=== PATIENT | male | born 1990 | race African-American/Black ===

== ENCOUNTER 2017-08-08 08:45 | Day surgery (SDC) | payer OTHER, MEDICAID, SELFPAY ==
[2017-08-08] VITALS (7 sets, daily range): BP systolic 121–136; BP diastolic 73–88; PULSE 63–81; RESP 15–17; TEMP 35.9–36.7; O2SAT 95–100; BMI 29.6
[2017-08-08] MEDS: LACTATED RINGERS 1,000 ML 42 ML IV (09:30)
--- NOTE | 2017-08-08 09:50 | PM.OP.1 ---
Operative Date/Time/Diagnoses - Date of procedure: 08/08/17 Time of procedure: 13:18 Pre-op diagnosis: Syndesmotic disruption right ankle sequel ICD 10 s93.431 Broken orthopedic hardware t84 Post-op diagnosis: same Procedure & Clinicians Procedure: 1. Stage revision syndesmotic fixation, with placement syndesmotic suture [place] 57446 2. removal syndesm[place] c[place] 93170 3. Removal broken hardware, separate incision cpt 39413 -[id number] This procedure was performed with a 22 modifier for a complex, revision case Same procedure as scheduled: Yes Indications: The patient is a 26-year-old male status post a right [place]uve ankle fracture dislocation on December 22, 2016. He was initially seen and treated by another physician. During the postoperative. Right about the time he started weight-bearing it was noticed that his fixation had failed his medial clear space opened up and he had broken his proximal syndesmotic screw and loosened the distal screw. He had a revision ORIF with myself on April 11, 2017 with a plan to convert the 3 syndesmotic screws to suture button device is approximately 16 weeks postoperative to provide long-term stability. Additionally the patient has requested removal of the broken 4.5 screw piece at the medial cortex. The patient returns today for the 2nd stage of his revision procedure. The risks and benefits of the procedure have been explained in detail with the patient. 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 Specific risks and benefits of surgery were discussed including but not limited to: Infection, wound dehiscence, damage to nerves and blood vessels, nonunion malunion, failure of fixation, hardware irritation, inability to return to prior level of activity, persistent pain, DVT, PE, cardiopulmonary complications associated with general anesthesia up to including . The patient expressed understanding of all these risks and has elected to proceed with surgery. Consent was signed in the office. The importance of complete tobacco and nicotine cessation was again explained to the patient and its importance in bone and wound healing. The patient has maintained nonsmoking status since the 1st revision surgery. He patient also understands that it is critical to strictly elevate the operative leg for the 1st 2 weeks after surgery to control swelling and pain. The patient was counseled that no weight will be allowed on the surgical leg for approximately 2 weeks or until the patient is instructed that it is safe to initiate weight-bearing. The patient expressed full understanding of all these issues would like to proceed with surgery. DVT prophylaxis was discussed and will be completed with 325 mg aspirin starting postoperative day 1. Surgeon: Luisa Cook Radiologic Technology Instructor: Jovanna Chen Anesthesia Type: General, Peripheral nerve block and Local Operative Notes Findings: The patient's prior fixation included a 5 hole Synthes 1/3 tubular plate (3) 4.0 cortical syndesmotic screws and (2) 3.5 screws in the fibula. Medially there was a remnant from the broken original fixation, 4.5 cortical screw. The previous lateral approach was opened up over the fibula and the hardware exposed. A separate medial incision was made to remove the broken screw remnants from the 4.5 screw. This was drilled over using the hardware removal set and removed with the extraction bolt. Attention was turned laterally and the proximal syndesmotic screw was removed and exchanged for a knotless tightrope from [employer], stainless steel. Then sequentially the 2nd and 3rd syndesmotic screws were exchanged for tight ropes. The middle syndesmotic screw was noted to be loose and broken. The distal piece of screw was enclosed in the the tibia and was not removed. Due to the broken screw the distal 3 5 screw was removed and a 3rd tight rope placed in this location. The construct was stressed under fluoroscopic imaging and noted to be stable with no evidence of instability or syndesmotic or medial widening. Closure Type: primary Specimen(s): none sent Implants & Drains: Three [employer] knotless stainless steel tightrope-suture button device Estimated Blood Loss (mL): 25 Blood products transfused: none Tourniquet time (min): 100 Procedure in detail: Procedure in detail: In the preoperative holding area, the appropriate limb and sites were marked, consent was again reviewed with the patient and all questions answered. The patient was brought to the operating room, placed on the operating table and given anesthetic. Following successful levels of anesthesia, the patient was appropriately padded, position secured to the table. An SCD was placed on the contralateral leg. All bony prominences were well padded. A well-padded thigh tourniquet was placed. The surgical leg was then prepped and draped in the usual sterile fashion. A formal time-out procedure was completed confirming the patient, site and side of surgery and administration of appropriate preoperative antibiotics. All were in agreement. The Esmarch tourniquet was used for exsanguination and the tourniquet raised on the thigh to 250 mm of mercury and stayed there for 100 min. Next C-arm was brought in for fluoroscopy and the level of the screws were provisionally marked on the leg. A good mortise image was obtained to compare with the previously captured mortise of the contralateral leg. Next at the previous lateral incision was reopened sharply through the skin careful dissection through the subcutaneous tissues down to the fibula. The previous hardware was then exposed. The superficial peroneal nerve was not exposed during this approach. Next attention was turned medially and the location of the broken 4.5 screw was located with AP and lateral fluoroscopy. Sharp dissection was taken down through the skin subcu is tenuous tissue, the saphenous vein and neurovascular bundle were exposed and carefully mobilized posteriorly. A small protruding tip of the screw was located. This was not able to be grasped. And due to the plate on the contralateral side the old hole was not able to be exposed for this screw. Therefore the broken hardware removal set and over drill was used to expose the tip of the screw further. This was done with care and cooling. The extraction bolt was then threaded onto the screw and the screw was removed in total. Attention was then returned to the lateral side of the leg. The proximal syndesmotic screw was removed and exchanged for a tight rope. The guidewire for the tight rope was placed through the hole in the plate and angled slightly less anterior than the previous screw to obtain a trajectory further across the medial cortex of the tibia. This was then overdrilled with a cannulated drill. The guidewire and drill were removed and a knotless stem was still tight rope was opened and placed. The next syndesmotic was then removed and noted to be loose and broken. The lateral screw piece and head were removed. The remaining broken piece from the tricortical syndesmotic screw was within the tibia and not sticking out or protruding into the joint syndesmosis. This was attempted to be removed by a mallet and through the screw hole however it did not move so was left in place, as it would not be symptomatic. Due to the broken screw, and continued plan for 3 tight rope devices, attention was then turned to the distal most hole of the fibular plate. The 3.5 screw through the fibula was removed. And the trajectory for the distal syndesmotic screw was then drilled with the solid 3.7 drill under fluoroscopic guidance through all 4 cortices. The tightrope was placed distal hole and secured the sutures were not cut. The medial counter incision was extended to expose the medial sided button and ensure a good position on the bone medially. Next the remaining tricortical syndesmotic screw was removed and exchanged for a 3rd stainless steel knotless tight rope. Again medial counter incision was just slightly extended to ensure that the medial buttons were lying down flat. The tight ropes were secured and checked under fluoroscopy. It was noted that the proximal tight rope was loose and the medial button could be spun around. The other tight ropes were very secure. The decision was made to exchange the proximal tight rope as its sutures were cut. A new tightrope was placed tightened and secured. This laid flat and secure on the bone medially and was not able to be spun. Final fluoroscopic imaging was obtained for AP mortise and lateral imaging confirmed appropriate hardware placement and alignment of the mortise. Additionally live fluoroscopic imaging was obtained understood external rotation stress examination, and Contton testing. The syndesmosis was stable. The tourniquet was then released. Irrigation with copious normal saline was then completed, and hemostasis achieved. Local anesthetic was placed in the saphenous distribution for the medial wound. The patient had a preoperative popliteal block the anesthesia team for aid in postoperative pain control. The wounds were closed in a layered fashion with 3 0 Vicryl for a Monocryl and oma. A sterile dressing was placed with Xeroform 4 x 4 gauze, Webril, ABD pads, cotton Irving roll and a well-padded U splint in neutral. Patient was woken from anesthesia and taken to the recovery room in stable condition. There were no immediate complications from this procedure. All counts were correct. Complications: none Condition: stable Disposition: same day surgery Plan for aftercare: The patient will be nonweightbearing on his right lower extremity for the next 2 weeks while his wounds heal. He will return to clinic for a wound check and placement into a boot and progressive weight-bearing. The patient has been advised while he is nonweightbearing to start taking aspirin 325 mg daily for DVT prophylaxis and has been advised on calf pumps.
--- NOTE | 2017-08-08 09:50 | PM.PREOP ---
Pre-operative Note Interval Note Pre-op Check: History & Physical Reviewed by Physician H&P completed within 30 days and has changed as indicated here:: no changes
--- NOTE | 2017-08-08 09:53 | SUR.PREOP ---
Block start time [0951] . Monitoring initiated and maintained throughout procedure. Oxygen and medications given per anesthesiologist instructions. Patient remained stable throughout procedure, no adverse reactions noted. Block end time [1007]. Per Dr. Montejo, sedation medications per Dr. Montejo. procedure tolerated well. maintained awake loc, normal vital signs, nsr on monitor.
--- NOTE | 2017-08-08 10:30 | DI.RAD.S_ITS ---
PROCEDURE: XR ANKLE RT MIN 3V INDICATIONS: HARDWARE SWAP, METAL OUT, STRING IN TECHNIQUE: One views of the ankle were acquired. COMPARISON: [facility], CR, XR ANKLE 3+ VIEWS RIGHT, 07/10/2017, 8:28. FINDINGS: Bones: Intraoperative AP view of the ankle shows interval removal of the 4 fixation screws, leaving the most proximal screw in place through the fibular plate. Broken off screw within the distal tibia and surgical clips medially again noted. Healing fibular fractures. Soft tissues: No tibiotalar joint effusion. Achilles tendon appears normal. IMPRESSION: Intraoperative imaging with removal of fixation screws. Dictated by: Marcin Santoyo M.D. on 08/08/2017 at 13:49 Approved by: Marcin Santoyo M.D. on 08/08/2017 at 13:51
--- NOTE | 2017-08-08 11:06 | SUR.OPER ---
Supine on padded OR bed, head on pillow, arms secured on padded arm boards at <90 degrees abduction, legs uncrossed, safety belt at thigh, tape over blanket over lower legs. bump under right hip
[2017-08-08] MEDS: CEFAZOLIN 2 GM/100 ML FROZ.PIGGY IV (11:33)
[2017-08-08] MEDS: BUPIVACAINE 0.5% (PF) 30 ML VIAL INJ (11:44)
== END 2017-08-08 14:10 ==
PROVIDERS: Family Provider Family Medicine; PCP Family Medicine; Visit Provider Orthopaedic Surgery Foot and Ankle Surgery
PROC: (CPT 27829; principal; 2017-08-08 09:15)
DX: S93.431D Sprain of tibiofibular ligament of right ankle, subsequent encounter (principal); Z96.698 Presence of other orthopedic joint implants; T84.89XA Other specified complication of internal orthopedic prosthetic devices, implants and grafts, initial encounter
CPT/HCPCS: 27829; 20680 ×2; 64450; 73610; 76001; J0690; J1100; J2704

== ENCOUNTER 2017-10-04 12:31 | Inpatient (IN) | payer MEDICAID, SELFPAY ==
[2017-10-04] VITALS (14 sets, daily range): BP systolic 98–138; BP diastolic 41–70; PULSE 60–86; RESP 13–20; TEMP 36.1–37; O2SAT 10–100; BMI 28.5
--- NOTE | 2017-10-04 12:34 | DI.RAD.S_ITS ---
PROCEDURE: XR TIBIA FUBULA RT 2V INDICATIONS: injury pain TECHNIQUE: 2 views of the tibia and fibula were acquired. COMPARISON: [facility], CR, ANKLE 3 VIEWS RIGHT, 04/11/2017, 9:58. [facility], CR, TIB/FIB 2V RIGHT, 12/22/2016, 14:51. [facility], CR, XR ANKLE 3 VIEWS WEIGHT BEARING RIGHT, 09/18/2017, 8:41. FINDINGS: Bones: In the interval since the prior exam, there has been fracture and displacement of the distal fibula with the fracture site occurring at the level of the superiormost screw. Previous ORIF is identified. In addition, there is significant fracture and displacement of the distal tibia diaphysis/metaphysis, appearing to originate at the site of the distal intramedullary tibial screw. There is approximately 11 mm displacement of medial and proximal fibular fragment with an approximate 15 mm overlap. There is approximately 19 mm displacement of the proximal and distal tibial fragments with a 12 mm fracture overlap. The tibiotalar joint space appears to be maintained. Soft tissues: No suspicious soft tissue calcifications or masses. IMPRESSION: Disruption of previous ORIF of the distal fibula and tibia as above with displaced fractures. Dictated by: Sandra Bullard M.D. on 10/04/2017 at 14:32 Approved by: Sandra Bullard M.D. on 10/04/2017 at 14:36
[2017-10-04] MEDS: HYDROMORPHONE 1 MG INJ IV (12:40)
[2017-10-04] MEDS: CEFAZOLIN 2 GM/100 ML FROZ.PIGGY IV ×2 (12:44→17:26)
--- NOTE | 2017-10-04 15:11 | PC.NURSE ---
Dr. Vasquez here to see patient and have patient sign consent
--- NOTE | 2017-10-04 15:15 | ED.LOWEXIN ---
HPI - Extremity Injury (Lower) General Chief Complaint: Extremity Injury, Lower Stated Complaint: Open Fx R tib/Fib History of Present Illness HPI Narrative: HPI 27-year-old male with a prior right tib-fib fracture status post ORIF presents for evaluation of the deformed right lower extremity with a laceration overlying the deformity of the distal aspect of his tibia after he fell while skateboarding. Denies further injuries. Notes normal sensation in his right lower extremity. Prior fracture was from skateboarding. M/S/F/SocHx notable for: please see HPI; remainder reviewed with patient and in chart. ROS: Negative constitutional, eye, cardiovascular, pulmonary, GI, , MSK, skin, neurologic, psychiatric, endocrine unless noted in the HPI. Exam General: pleasant, peers markedly uncomfortable, nontoxic-appearing. HENT: No evidence of facial or head trauma, TTP of orbits, TTP of midface, malocclusion, or septal hematoma. OP clear and moist, dentition intact. Eyes: EOMI, PERRL (3->2mm bilaterally). Neck: Tracheal midline. No visible skin defects, no step-offs, no c-spine TTP, no stridor, or JVD. Cardiac: Regular rate and rhythm. Chest: No crepitus, visual evidence of trauma, no tenderness to palpation. Equal chest rise. Pulm: Clear to auscultation bilaterally, normal work of breathing without accessory muscle usage. Abd: Soft, nontender to palpation, nondistended, no guarding or visual evidence of trauma. Back: No spinous process tenderness to palpation, no step-offs or visible injuries. Pelvis: Stable, no tenderness to palpation or instability. RUE: No visible injuries. Auto Vinyl Top Installer 5/5, radial pulse 2+, sensation intact at hand. Shoulder, elbow, wrist, and fingers with full functional range of motion. Muscle compartments of the upper arm, forearm, and hand are soft and without marked tenderness to palpation. LUE: No visible injuries. Auto Vinyl Top Installer 5/5, radial pulse 2+, sensation intact at hand. Shoulder, elbow, wrist, and fingers with full functional range of motion. Muscle compartments of the upper arm, forearm, and hand are soft and without marked tenderness to palpation. RLE: approximately 2 cm long laceration on the medial aspect of his distal lower leg overlying his tibia. Distal tibia and fibular deformity. DP 2+, sensation intact at foot. Muscle compartments of the thigh, calf, and foot are soft and without marked tenderness to palpation. LLE: No visible injuries. Dorsiflexion 5/5, distal pulse 2+, sensation grossly intact. Hip, knee, ankle, and toes with full functional range of motion. Muscle compartments of the thigh, calf, and foot are soft and without marked tenderness to palpation. Neuro: AOx3, CN VII intact Skin: Warm and dry (focal injuries noted above). Psych: Normal affect and judgment. Labs / Imaging (pertinent): XR R Tib/Fib: transverse displays fractures of the distal tibia or fibula above prior surgical hardware. Radiologist read pending. MDM Previous chart, nursing note, and vitals reviewed. A/P: 27-year-old male with a prior right tib-fib fracture status post ORIF presents for evaluation of the deformed right lower extremity with a laceration overlying the deformity of the distal aspect of his tibia after he fell while skateboarding. Patient with open right distal tib-fib fracture. 2 g Ancef given. Hydromorphone for pain control. Orthopedics consulted. Patient admitted for operative repair. CMS intact. No further injuries appreciated history or exam. Impression: open right tib-fib fracture (please reference below for remainder of encounter information) Related Data Home Medications Medication Instructions Recorded Confirmed sertraline 50 mg PO HS #30 tab 12/07/15 10/04/17 aripiprazole [Abilify] 30 mg PO QDAY #0 11/21/16 10/04/17 Previous Rx's Medication Instructions Recorded oxycodone-acetaminophen [Percocet] 1 tab PO Q4-6H PRN #40 tab 08/08/17 Allergies Allergy/AdvReac Type Severity Reaction Status Date / Time No Known Drug Allergies Allergy Verified 10/04/17 12:31 PFSH Medical History Elective surgery (Acute) Sprain of right ankle (Acute) Syndesmotic disruption of right ankle (Acute) Family History Mother Alcohol abuse Social History household members: friend(s) Exam Initial Vital Signs Initial Vital Signs: Vital Signs Temperature 98.0 F 10/04/17 12:31 Pulse Rate 70 10/04/17 12:31 Respiratory Rate 16 10/04/17 12:31 Blood Pressure 114/61 10/04/17 12:31 Pulse Oximetry 96 10/04/17 12:31 Course Orders Ordered: ED Orders 10/04/17 12:34 XR tibia fibula RT 2V Stat Discontinued Medications Hydromorphone HCl (Dilaudid) 1 mg IV NOW ONE Stop: 10/04/17 12:39 Last Admin: 10/04/17 12:40 Dose: 1 mg Cefazolin Sodium/Dextrose (Ancef) 2 gm in 100 mls @ 200 mls/hr IV NOW ONE Stop: 10/04/17 13:07 Last Infusion: 10/04/17 14:11 Dose: 0 mls/hr Admin: 10/04/17 12:44 Dose: 200 mls/hr Vital Signs - 8 hr 10/04/17 12:31 10/04/17 13:30 10/04/17 14:00 Temperature 98.0 F Pulse Rate 70 62 Respiratory Rate 16 13 Blood Pressure 114/61 Blood Pressure [Left Arm] 101/41 L 108/47 L Pulse Oximetry 96 100 10/04/17 15:06 Temperature Pulse Rate 60 Respiratory Rate 16 Blood Pressure Blood Pressure [Left Arm] 103/51 L Pulse Oximetry 100 Discharge Plan Departure Patient Disposition: Admitted As Inpatient Clinical Impression: Fracture tibia/fibula
--- NOTE | 2017-10-04 15:24 | PM.HP.1 ---
History of Present Illness Date Patient Seen: 10/04/17 Time Patient Seen: 14:45 Chief complaint: Open Fx R tib/Fib Narrative: The patient is a 27-year-old young man who has had a complex history of prior right ankle fracture surgery. He has had an open reduction and internal fixation of a right ankle fracture followed by 2 attempts at reconstruction of the ankle syndesmosis. He was skateboarding today and fell sustaining an open fracture above the fibular plate and through 1 of the syndesmosis reconstruction drill holes in the tibia. He is at [facility] Emergency room for treatment. Patient History Medical History Schizophrenia (Acute) Elective surgery (Acute) Sprain of right ankle (Acute) Syndesmotic disruption of right ankle (Acute) Comment: As noted in the history of present illness Family & Social History Family history unavailable: No Social History: household members friend(s) Meds Home Medications Medication Instructions Recorded Confirmed Type sertraline 50 mg PO HS #30 tab 12/07/15 10/04/17 History aripiprazole [Abilify] 30 mg PO QDAY #0 11/21/16 10/04/17 History oxycodone-acetaminophen [Percocet] 1 tab PO Q4-6H PRN #40 tab 08/08/17 10/04/17 Rx Allergies Allergy/AdvReac Type Severity Reaction Status Date / Time No Known Drug Allergies Allergy Verified 10/04/17 12:31 Review of Systems Review of Systems All systems reviewed & are unremarkable except as noted in HPI and below Exam Vital Signs (past 8 hours): - 10/04/17 12:31 10/04/17 13:30 10/04/17 14:00 Temperature 98.0 F Pulse Rate 70 62 Respiratory Rate 16 13 Blood Pressure 114/61 Blood Pressure [Left Arm] 101/41 L 108/47 L Pulse Oximetry 96 100 10/04/17 15:06 Temperature Pulse Rate 60 Respiratory Rate 16 Blood Pressure Blood Pressure [Left Arm] 103/51 L Pulse Oximetry 100 Oxygen Delivery Method Room Air Narrative Exam Narrative: Right lower extremity examination is notable for a clean 2 cm inside out laceration from the tibia medially. No gross contamination. The distal lower extremity is externally rotated. Light touch is intact in the superficial and deep peroneal nerve distributions as well as the tibial nerve distribution. He can weakly dorsiflex and plantar flex his toes. HENMS Head: normal to inspection Ears: hearing grossly normal bilaterally Nose: external nose normal Face and sinus: normal facial exam Mouth: oral mucosae normal and lip normal Teeth and gingiva: dentition normal Eyes General: appearance normal, both eyes and all related structures Chest Chest: normal inspection of the chest Resp Auscultation: clear to auscultation bilaterally Cardio Rate: regular rate Rhythm: regular rhythm Heart Sounds: S1 normal and S2 normal GI Inspection: normal to inspection Palpation: soft and No tender Auscultation: normal bowel sounds Assessment & Plan Plan: Assessment/Plan Narrative: The patient has an open tibia fracture above his prior reconstruction of the syndesmosis. We will irrigate the fracture and then plated it for fixation. We will attempt to maintain the syndesmotic fixation in place however if necessary some of it may need to be removed. There is a broken screw in the tibia which we may be able to retrieve through the fracture site. The risks benefits and alternatives to surgery were discussed with the patient at length and he has agreed to proceed. Risks discussed included but were not limited to: Nonunion, malunion, infection, nerve damage, incomplete return of function, stiffness, deep venous thrombosis, pulmonary embolism, stroke, myocardial infarction, permanent paralysis and .
--- NOTE | 2017-10-04 15:29 | P.HP_ITS ---
History of Present Illness Date Patient Seen: 10/04/17 Time Patient Seen: 14:45 Chief complaint: Open Fx R tib/Fib Narrative: The patient is a 27-year-old young man who has had a complex history of prior right ankle fracture surgery. He has had an open reduction and internal fixation of a right ankle fracture followed by 2 attempts at reconstruction of the ankle syndesmosis. He was skateboarding today and fell sustaining an open fracture above the fibular plate and through 1 of the syndesmosis reconstruction drill holes in the tibia. He is at [facility] Emergency room for treatment. Patient History Medical History Schizophrenia (Acute) Elective surgery (Acute) Sprain of right ankle (Acute) Syndesmotic disruption of right ankle (Acute) Comment: As noted in the history of present illness Family & Social History Family history unavailable: No Social History: household members friend(s) Meds Home Medications Medication Instructions Recorded Confirmed Type sertraline 50 mg PO HS #30 tab 12/07/15 10/04/17 History aripiprazole [Abilify] 30 mg PO QDAY #0 11/21/16 10/04/17 History oxycodone-acetaminophen [Percocet] 1 tab PO Q4-6H PRN #40 tab 08/08/17 10/04/17 Rx Allergies Allergy/AdvReac Type Severity Reaction Status Date / Time No Known Drug Allergies Allergy Verified 10/04/17 12:31 Review of Systems Review of Systems All systems reviewed & are unremarkable except as noted in HPI and below Exam Vital Signs (past 8 hours): - 10/04/17 12:31 10/04/17 13:30 10/04/17 14:00 Temperature 98.0 F Pulse Rate 70 62 Respiratory Rate 16 13 Blood Pressure 114/61 Blood Pressure [Left Arm] 101/41 L 108/47 L Pulse Oximetry 96 100 10/04/17 15:06 Temperature Pulse Rate 60 Respiratory Rate 16 Blood Pressure Blood Pressure [Left Arm] 103/51 L Pulse Oximetry 100 Oxygen Delivery Method Room Air Narrative Exam Narrative: Right lower extremity examination is notable for a clean 2 cm inside out laceration from the tibia medially. No gross contamination. The distal lower extremity is externally rotated. Light touch is intact in the superficial and deep peroneal nerve distributions as well as the tibial nerve distribution. He can weakly dorsiflex and plantar flex his toes. HENVA Head: normal to inspection Ears: hearing grossly normal bilaterally Nose: external nose normal Face and sinus: normal facial exam Mouth: oral mucosae normal and lip normal Teeth and gingiva: dentition normal Eyes General: appearance normal, both eyes and all related structures Chest Chest: normal inspection of the chest Resp Auscultation: clear to auscultation bilaterally Cardio Rate: regular rate Rhythm: regular rhythm Heart Sounds: S1 normal and S2 normal GI Inspection: normal to inspection Palpation: soft and No tender Auscultation: normal bowel sounds Assessment & Plan Plan: Assessment/Plan Narrative: The patient has an open tibia fracture above his prior reconstruction of the syndesmosis. We will irrigate the fracture and then plated it for fixation. We will attempt to maintain the syndesmotic fixation in place however if necessary some of it may need to be removed. There is a broken screw in the tibia which we may be able to retrieve through the fracture site. The risks benefits and alternatives to surgery were discussed with the patient at length and he has agreed to proceed. Risks discussed included but were not limited to : Nonunion, malunion, infection, nerve damage, incomplete return of function, stiffness, deep venous thrombosis, pulmonary embolism, stroke, myocardial infarction, permanent paralysis and .
[2017-10-04] MEDS: HYDROMORPHONE 1 MG INJ 0.5 MG IV (16:04)
[2017-10-04] MEDS: HYDROMORPHONE 1 MG INJ 2 MG IV ×2 (17:05→17:10)
--- NOTE | 2017-10-04 18:12 | SUR.OPER ---
to or from floor via bed induced on bed then transferred to or table Supine on padded OR bed, head on pillow, arms secured on padded arm boards at <90 degrees abduction, legs uncrossed, safety belt at pelvis, tape over blanket over lower left leg.
[2017-10-04] MEDS: LACTATED RINGERS 1,000 ML 84 ML IV (18:32)
--- NOTE | 2017-10-04 19:20 | PM.OP.1 ---
Operative Date/Time/Diagnoses Date of procedure: 10/04/17 Time of procedure: 19:00 Pre-op diagnosis: 1. Grade 2 open fracture of right tibia and fibula 2. Status post syndesmosis reconstruction with retained hardware Post-op diagnosis: same Procedure & Clinicians Procedure: 1. Open reduction and internal fixation of distal tibia fracture with plate and screws 2. Irrigation and debridement of skin and subcutaneous tissues associated with open fracture 3. Removal of broken screw from prior syndesmosis reconstruction Same procedure as scheduled: Yes Indications: The patient is a 27-year-old gentleman who has had an ankle fracture followed by 2 attempts at syndesmosis reconstruction. He was skateboarding today and suffered a fall with a fracture at the proximal end of his fibular plate and through the screw holes from his syndesmosis reconstruction. He has agreed to surgery after discussion of the risks benefits and alternatives as noted in my history and physical note. Surgeon: Shmuel Vasquez Click Yes if Unassisted: Yes Anesthesia Type: General and Local Operative Notes Findings: Minimally contaminated fracture wound. Retained broken syndesmosis screw in the fracture site. Satisfactory alignment of the fracture after fixation. Closure Type: primary Specimen(s): none sent Implants & Drains: Implants used in this procedure were manufactured by the [employer] and included a 6 hole medial distal tibial plate, two 3.5 mm locking screws measuring 36 and 40 mm, and eight 3.5 mm non locking cortical screws. One 44 mm nonlocking screw was not implanted after use. A fragment of a prior cortical fixation screw was removed during the procedure. Applied: implant(s) Estimated Blood Loss (mL): 25 Blood products transfused: none Tourniquet time (min): 65 Procedure in detail: The patient was seen in the preoperative area where he confirmed the right leg as the operative site. There was no need for marking this as it was marked by the open wound. He had received preoperative antibiotics but was given an additional dose due to the time that had passed since the emergency room dose. He was taken to the operating room and placed on the operating room table in a supine position after undergoing a general anesthetic on his gurney. A tourniquet was placed about his proximal right thigh and his right leg was prepared with Betadine around the fracture wound and then with ChloraPrep for the remainder of the leg from the toes to the tourniquet. The leg was draped through sterile drapes. Initially the wound, which measured approximately 2 cm, was extended proximally and distally. This was debrided and irrigated with pulsatile lavage. The fracture was evacuated of hematoma. A fragment of a prior broken screw was evident in the fracture site and this was removed with a trephine. The fracture was then manually reduced with traction and internal rotation. This provided satisfactory reduction although there had been some comminution of the fracture and there were defects from his prior reconstructive surgery which did not allow full cortical contact. The fracture was held in place with a 2 mm Miky wire. The plate was placed over the wire and initially 2 nonlocking screws were placed in the distal fragment. The K-wire was then removed and I placed 2 lag screws across the plate and across the fracture site to provide some compression. The position of all hardware was confirmed as being satisfactory on fluoroscopy. The fracture site appeared to be satisfactorily reduced. 2 locking screws were then placed in the distal fragment and an additional 4 cortical screws were placed proximally. Two of the holes in the plate were left unfilled. One of the 2 lag screws was seen to be considerably longer than necessary and this was removed and replaced with a screw of appropriate length. Again the position of the fracture and all hardware was verified as being appropriate in the AP and lateral views of fluoroscopy. The wound was irrigated further with the pulsatile lavage. The thickened distal periosteum was repaired over the plate with an 0 Vicryl. The subcutaneous layer was closed with interrupted 3 O Vicryl and both the traumatic wound and the extensions of the wound were closed with oma. Prior to the final closure 10 mL 0.5% Marcaine with epinephrine was infiltrated into the skin flaps for postoperative pain control. Complications: none Condition: stable Disposition: PACU Plan for aftercare: The patient will remain nonweightbearing on the right lower extremity for at least 4 weeks. Progression towards healing will be verified on the radiographs prior to allowing weight-bearing. He will be maintained in the hospital for at least 24 hr for IV antibiotics.
[2017-10-04] MEDS: BUPIVACAINE 0.5% W/ EPI (PF) VIAL 10 ML INJ (19:27)
--- NOTE | 2017-10-04 20:33 | PC.NURSE ---
patient up to floor after surgery at around 1945. patient is awake, alert and oriented. 95% on ra. pain is 9/10 before pain medications. patient has been oriented to room and call light, instructed to call for assistance if needing to get oob. patient denies nausea, sob, or dizziness. cms is intact. patient demonstrates he can wiggle toes, cap refill is less than 2 sec. patient denies numbness. patient urinated right before surgery, urine was sumanth but clear. heart, lung, and bowel tones wnl. will continue to monitor.
[2017-10-04] MEDS: CEFAZOLIN 1 GM/50 ML FROZ.PIGGY IV (20:56)
[2017-10-04] MEDS: SODIUM CHLORIDE 0.9% 1,000 ML 100 ML IV (20:56)
[2017-10-04] MEDS: MAGNESIUM HYDROXIDE 30 ML UDC PO (20:56)
[2017-10-04] MEDS: OXYCODONE IR 5 MG TABLET PO ×2 (20:56→22:25)
[2017-10-04] MEDS: ASPIRIN EC 81 MG TABLET PO (20:56)
[2017-10-04] MEDS: ACETAMINOPHEN 325 MG TABLET 975 MG PO (20:56)
[2017-10-04] MEDS: SERTRALINE 50 MG TABLET PO (20:57)
[2017-10-04] MEDS: DOCUSATE 100 MG CAPSULE PO (20:57)
[2017-10-04] MEDS: HYDROMORPHONE 0.5 MG INJ IV (22:25)
[2017-10-05] MEDS: OXYCODONE IR 5 MG TABLET 10 MG PO ×4 (01:30→12:20)
[2017-10-05 05:20] LABS: Hematocrit 41.1 % (41-53); Hemoglobin 13.7 g/dL (13.5-17.5)
[2017-10-05] MEDS: CEFAZOLIN 1 GM/50 ML FROZ.PIGGY IV (05:20)
[2017-10-05 06:00] VITALS: BP 134/69; PULSE 69; RESP 16; TEMP 36.6; O2SAT 99
[2017-10-05] MEDS: ACETAMINOPHEN 325 MG TABLET 975 MG PO (08:12)
[2017-10-05] MEDS: ASPIRIN EC 81 MG TABLET PO (08:13)
[2017-10-05] MEDS: DOCUSATE 100 MG CAPSULE PO (08:13)
[2017-10-05] MEDS: ARIPiprazole 10 MG TABLET 30 MG PO (08:13)
[2017-10-05 08:53] VITALS: BP 117/56; PULSE 65; RESP 16; TEMP 36.9; O2SAT 95
--- NOTE | 2017-10-05 09:25 | PT.IIE ---
Surgery Performed Operation Date: 10/04/17 17:30 Actual Procedures p wash out open wound open reduction with internal fixation right tibia(Right) - Shmuel Vasquez MD Medical History (Last Updated 10/04/17 @ 15:26 by Shmuel Vasquez MD) Schizophrenia (Acute) Elective surgery (Acute) Sprain of right ankle (Acute) Syndesmotic disruption of right ankle (Acute) Physical Therapy Inpatient Evaluation/Re-Eval M1 PT/OT-IP Prior Functional Status Start: 10/05/17 09:46 Freq: Status: Active Protocol: Document 10/05/17 09:25 RCC (Rec: 10/05/17 09:59 [facility] [id number]) Medical Review Prior Functional Status Medical History Reviewed Yes Diet/Fluid Consistency Regular Communication WNL Mobility and Gait indep. community ambulator without device Activities of Daily Living and IADL's indep. 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 Social History Household Members family Living Arrangements House Number of Floors (Floors) Two Floors Number of Stairs To Enter/Railing? 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 Additional Social History Comment walking boot @ home M2 PT-IP Current Condition Start: 10/05/17 09:46 Freq: Status: Active Protocol: Document 10/05/17 09:25 RCC (Rec: 10/05/17 09:59 [facility] [id number]) Physical Therapy Current Condition Current Condition Evaluation Date 10/05/17 Treatment Diagnosis open fx R tib/fib s/p ORIF Onset Date 10/04/2017 Precautions Other Precautions walking boot when in community , NWB RLE for at lest 4 weeks Weight Bearing Status Weight Bearing Status Non-Weight Bearing Allowed Weight Bearing Amount (enter % NWB RLE or #) (%) M3 PT-IP Subjective Start: 10/05/17 09:46 Freq: Status: Active Protocol: Document 10/05/17 09:25 RCC (Rec: 10/05/17 09:59 [facility] [id number]) Subjective Physical Therapy Visit Type Type Initial Evaluation Visit Start Time 09:00 Visit Stop Time 09:25 Total Visit Minutes 25 Notes pt with h/o prior R ankle fx and ORIF, presenting with new open fx skateboarding. Number of DIRECTOR OF STRATEGY & MOBILE Visits 0 Physical Therapy Visit Comments Patient Comments pt notes that his pain is pretty high, 9/10. Short Term Goals go home Therapy Pain Assessment Pain When Pain Assessed After Treatment Pain Present Pain Present Pain Reported Location Right Leg Intensity 9 Scale Used Numeric (1 - 10) Pain Management Techniques Re-positioning M4 PT-IP Mobility and Gait Start: 10/05/17 09:46 Freq: Status: Active Protocol: Document 10/05/17 09:25 RCC (Rec: 10/05/17 09:59 [facility] [id number]) PT-Bed Mobility Assessment Supine to Sit Supine to Sit Independent Sit to Supine Sit to Supine Independent Scooting Scooting to Edge of Bed Independent PT-Transfer Assessment Sit to and From Stand Sit to and from Stand Independent Equipment Transfer Assistive Device Gait Belt Axillary Crutches Transfers Transfer Destination Bed Wheelchair Transfer Technique Stand Pivot Transfer Ability Level of Assist Independent Comments Mobility Comments B axillary crutches used, NWB RLE maintained. Gait Assessment Gait Gait Assistance Required: Independent Distance (Feet) (feet) 150 Able to Maintain Weight Bearing Status Yes During Gait Assistive Devices Assistive Device Gait Belt Axillary Crutches Factors Limiting Gait Function Factors Limiting Gait Function Pain Comments Gait Comments swing-through gait patter with B axillary crutches. No LOB Stair Climbing Assessment Evaluation Level of Assist On Stairs Independent Devices Stair Climbing Assistive Devices Axillary Crutches Technique/Endurance Stair Climbing Direction Ascend and Descend Stair Climbing Technique Step to Step Number of Steps Climbed 3 Query Text: Stair Climbing Set # Repetitions (reps) 1 Comments Stair Climbing Comments maintained NWB, no LOB, demonstration provided but no cuing required when pt was performing steps. PT-Balance Assessment Sitting Balance and Reactions Static Sitting Balance Ability Normal Dynamic Sitting Balance Ability Normal Standing Balance and Reactions Static Standing Balance Ability Normal Dynamic Standing Balance Ability Good Device Used B axillary crutches Balance Tests Single Limb Standing >10 sec (LLE) M5 PT-IP Objective Assessments Start: 10/05/17 09:46 Freq: Status: Active Protocol: Document 10/05/17 09:25 RCC (Rec: 10/05/17 09:59 [facility] [id number]) Orientation Orientation/Cognition Level of Alertness Alert Orientation Name Age Birthday Month Date Year Day of Week Place Situation Language Function Ability No Deficits Noted Safety Awareness Understands Safety Issues Memory Description No Deficits Noted Gross Range of Motion Upper Extremity ROM Assessment Within Functional Limits Lower Extremity ROM Assessment Right Impaired Strength Upper Extremity Strength Assessment Within Functional Limits Lower Extremity Strength Assessment Right Impaired Comments Strength Comments MMT not performed due to recent surgery, but SLR required pt's own UE assist initially. Coordination Assessment Gross Coordination Gross Coordination WNL Sensation Assessment Sensation Gross Sensation WNL M6 PT-IP Treatment Start: 10/05/17 09:46 Freq: Status: Active Protocol: Document 10/05/17 09:25 RCC (Rec: 10/05/17 09:59 [facility] [id number]) Physical Therapy Treatment Education Education Provided Precautions Weight Bearing Status Safety M7 PT-IP Assessment and Plan Start: 10/05/17 09:46 Freq: Status: Active Protocol: Document 10/05/17 09:25 RCC (Rec: 10/05/17 09:59 [facility] [id number]) PT Summary Assessment and Plan Potential Rehabilitation Potential Excellent Status of Condition at Evaluation Stable Summary Impairments Pain ROM Gait Activity Tolerance Progress Towards Goals Safe For Discharge Assessment Summary POD #1 R ankle ORIF due to open tib/fib fx. Pt able to mobilize safely with bilateral axillary crutches, and maintain NWB status the entire session. MD wanted pt to wear his walking boot upon d/c for protection as well and continue NWB for at least 4 weeks. Pt is cleared mobility- lorenz to d/c when medically stable, no further acute PT needs at this time. Frequency of Treatment Frequency Of Treatment Discharge Recommendations To Nursing Amount of Assist Needed Independent Discharge Recommendations PT Discharge Recommendations Home with Assistance Equipment Needed for Home Before bilateral axillary crutches if Discharge brother unable to obtain them at home.
--- NOTE | 2017-10-05 09:35 | PM.DS.1 ---
History of Present Illness Date Patient Seen: 10/05/17 Time Patient Seen: 09:15 Chief complaint: Open Fx R tib/Fib Narrative: The patient is a 27-year-old young man who has had a complex history of prior right ankle fracture surgery. He has had an open reduction and internal fixation of a right ankle fracture followed by 2 attempts at reconstruction of the ankle syndesmosis. He was skateboarding today and fell sustaining an open fracture above the fibular plate and through 1 of the syndesmosis reconstruction drill holes in the tibia. He is at [facility] Emergency room for treatment. Discharge Providers Date of admission: 10/04/17 15:51 Primary care physician: Louise Raman DO Consults: 10/04/17 19:34 Consult to Discharge Planning Routine Comment: Consult to Physical Therapy Evaluate & Treat Comment: NWB RLE. Pt. should have a velcro boot already Physician Instructions: Evaluate and Treat, Western Walker to R leg. Discharge provider: Shmuel Vasquez MD Discharge Date: 10/05/17 Summary Discharge Diagnosis: Open fracture of right distal tibia. Hospital Course: The patient was admitted to the hospital directly from the emergency room and taken to the operating room for incision and drainage, removal of deep hardware and open reduction internal fixation of his right tibia. He tolerated this procedure well and other than moderate pain control issues postoperatively was stable. On postoperative day 1 he passed physical therapy and was ready for discharge home. Status at Discharge Cognitive/behavioral status at discharge: Unchanged. Functional status at discharge: independent ambulation (Using crutches.) Overall status at discharge: patient is progressing back to baseline Time Spent with Patient Less than 30 minutes Exam Vital Signs (past 8 hours): - 10/05/17 06:00 10/05/17 08:53 Temperature 97.8 F 98.4 F Pulse Rate 69 65 Respiratory Rate 16 16 Blood Pressure 134/69 H 117/56 L Pulse Oximetry 99 95 Oxygen Delivery Method Room Air Oxygen Flow Rate 0 Narrative Exam Narrative: Right lower extremity wound is dressed with minimal drainage on the bandage. Calf is soft. Light touch and motion are intact in the right lower extremity. Objective Labs Result Diagrams: 10/05/17 04:50 Labs: Laboratory Results - last 24 hr 10/05/17 04:50 Hgb 13.7 Hct 41.1 Discharge Plan Discharge Plan Patient Disposition: Home, Self-Care Provider Discharge Instructions Diet: Diet as Tolerated Activity: Non-weight bearing on right leg. Use crutches to walk. Cold/Heat Therapy: Ice to right leg as needed. Other treatments: Wear Velcro boot while up and walking. May take boot off when seated for ankle range of motion and to bathe. Wound Care Report to your healthcare provider any signs of infection, such as:: chills, fever, night sweats, increased pain and unusual drainage Dressing: May remove dressing in 3 days and cover with gauze if desired. Discharge Data Primary Care Provider: Louise Raman Attending Provider: Shmuel Vasquez Admit Date/Time: 10/04/17 15:51
--- NOTE | 2017-10-05 10:34 | PC.NURSE ---
Pt has been seen by surgeon and discharged home. Has own crutches and brace to use. Brother will bring in. Noted small amt of shadow drainage on dressing and toña wrap. IV removed and pt is ready for dc home.
== END 2017-10-05 12:43 | disposition home or self-care (01) | DRG 492 ==
LOC: ED 15:15 → AC 15:52
PROVIDERS: Admitting Provider Orthopaedic Surgery; Emergency Provider Emergency Medicine; Family Provider Family Medicine; PCP Family Medicine; Visit Provider Orthopaedic Surgery
PROC: 0SSF04Z Reposition Right Ankle Joint with Internal Fixation Device, Open Approach (ICD-10-PCS; principal; 2017-10-04 17:30)
DX: M96.671 Fracture of tibia or fibula following insertion of orthopedic implant, joint prosthesis, or bone plate, right leg (principal); S82.831B Other fracture of upper and lower end of right fibula, initial encounter for open fracture type I or II; S82.391B Other fracture of lower end of right tibia, initial encounter for open fracture type I or II; Y93.51 Activity, roller skating (inline) and skateboarding; T84.018A Broken internal joint prosthesis, other site, initial encounter; F20.9 Schizophrenia, unspecified
CPT/HCPCS: 36415; 73590; 85014; 85018; 96365; 96366; 96375; 96376; 97161; 99283; 99285; J0690; J1100; J1170; J2405; J2704; J3010

== ENCOUNTER → 2018-08-12 11:35 | Outpatient (CLI) | payer OTHER, MEDICAID, SELFPAY ==
[2017-10-04 20:07] VITALS: BMI 28.5
[2018-08-12 12:19] LABS: Hematocrit 44.8 % (41-53); Hemoglobin 15.5 g/dL (13.5-17.5); Mean Corpuscular HGB Conc 34.6 % (30-36); Mean Corpuscular Hemoglobin 30.9 PG (26-34); Mean Corpuscular Volume 89.4 fL (80-100); Platelet Count 204 X10^3/uL (150-400); Red Blood Cell Count 5.01 X10^6/uL (4.5-5.9); Red Cell Distribution Width 12.5 % (11.6-14.8); White Blood Cell Count 4.5 X10^3/uL (4.5-11.0)
[2018-08-12 13:30] LABS: Alanine Aminotransferase 45 IU/L (21-72); Albumin 4.6 g/dL (3.5-5.0); Albumin Globulin Ratio 1.5 (1.0-2.8); Alkaline Phosphatase 83 U/L (38-126); Aspartate Aminotransferase 31 IU/L (17-59); BUN Creatinine Ratio 18.8 (6-22); Bilirubin Total 0.7 mg/dL (0.2-1.3); Blood Urea Nitrogen 15 mg/dL (9-20); Calcium 9.9 mg/dL (8.4-10.2); Carbon Dioxide 28 mmol/L (22-32); Chloride 103 mmol/L (98-107); Estimated Glomerular Filt Rate > 60.0 mL/min (>60); Glucose 79 mg/dL (70-100); HEMOLYSIS < 15 (0-50); Potassium 3.9 mmol/L (3.4-5.1); Sodium 139 mmol/L (137-145); Total Protein 7.6 g/dL (6.3-8.2)
== END ==
PROVIDERS: Family Provider Family Medicine; PCP Family Medicine; Visit Provider Nurse Practitioner Family
DX: Z00.00 Encounter for general adult medical examination without abnormal findings (principal)
CPT/HCPCS: 36415; 80053; 85027

== ENCOUNTER 2018-09-06 03:02 | Emergency (ER) | payer OTHER, MEDICAID, SELFPAY ==
[2017-10-04 20:07] VITALS: BMI 28.5
[2018-09-06 03:31] VITALS: BP 148/99; PULSE 79; RESP 16; TEMP 36.9; O2SAT 99; BMI 24.3
[2018-09-06 03:40] LABS: Urine Amphetamines Negative (Negative); Urine Barbiturates Negative (Negative); Urine Benzodiazepines Negative (Negative); Urine Cocaine Negative (Negative); Urine MDMA Negative (Negative); Urine Methadone Negative (Negative); Urine Methamphetamines Negative (Negative); Urine Morphine/Opi cutoff 2000 Negative (Negative); Urine Oxycodone Negative (Negative); Urine Phencyclidine Negative (Negative); Urine Tetrahydrocannabinol Positive (Negative); Urine Tricyclic Antidepressant Negative (Negative)
[2018-09-06 03:46] LABS: Add Manual Diff / Slide Review NO; Basophils Absolute Auto 0 /uL (0-100); Basophils Percent Auto 0.3 % (0-2); Eosinophils Absolute Auto 0 /uL (0-450); Eosinophils Percent Auto 0.1 % (2-4); Hematocrit 42.7 % (41-53); Hemoglobin 14.5 g/dL (13.5-17.5); Lymphocytes Absolute Auto 1500 /uL (1100-4500); Lymphocytes Percent Auto 19.2 % (25-40); Mean Corpuscular HGB Conc 33.8 % (30-36); Mean Corpuscular Hemoglobin 30.6 PG (26-34); Mean Corpuscular Volume 90.4 fL (80-100); Monocytes Absolute Auto 600 /uL (0-900); Monocytes Percent Auto 8.1 % (3-14); Neutrophils Absolute Auto 5600 /uL (1500-7000); Neutrophils Percent Auto 72.3 % (50-75); Platelet Count 257 X10^3/uL (150-400); Red Blood Cell Count 4.73 X10^6/uL (4.5-5.9); Red Cell Distribution Width 12.6 % (11.6-14.8); White Blood Cell Count 7.8 X10^3/uL (4.5-11.0)
--- NOTE | 2018-09-06 03:49 | PC.NURSE ---
Patient is sitting on the mattress on the floor. He was given water, cranberry juice and a yogurt. He is cooperative with physician and staff. [facility] is still in ED at this time to fill out [facility] forms.
[2018-09-06 03:54] LABS: Alanine Aminotransferase 46 IU/L (21-72); Albumin 4.8 g/dL (3.5-5.0); Albumin Globulin Ratio 1.4 (1.0-2.8); Alkaline Phosphatase 91 U/L (38-126); Aspartate Aminotransferase 48 IU/L (17-59); Bilirubin Total 0.6 mg/dL (0.2-1.3); Blood Urea Nitrogen 22 mg/dL (9-20); Calcium 9.5 mg/dL (8.4-10.2); Carbon Dioxide 28 mmol/L (22-32); Chloride 104 mmol/L (98-107); Estimated Glomerular Filt Rate > 60.0 mL/min (>60); Globulin 3.4 g/dL (1.7-4.1); Glucose 106 mg/dL (70-100); HEMOLYSIS < 15 (0-50); Potassium 3.5 mmol/L (3.4-5.1); Sodium 142 mmol/L (137-145); Total Protein 8.2 g/dL (6.3-8.2)
--- NOTE | 2018-09-06 03:54 | ED.PSYCH ---
HPI - Psych <Deny Savage MD - Last Filed: 10/02/18 06:23> General Chief Complaint: Psychiatric Symptoms Stated Complaint: Brought by [employer], patient off meds Time Seen by Provider: 09/06/18 03:25 Source: police Mode of arrival: other (Police) History of Present Illness HPI Narrative: The patient has schizophrenia. He has been off medications for 3 months, he apparently fired his doctor at [facility] 3 months ago. He is escorted here by police officers. One of the officers created an affidavit regarding the events of the night. He lives with his mother. His mother noted an ongoing escalation of adverse behavior. He is paranoid. He described making a mess at home. He was moving furniture and blocking door ways and windows. Police were called because of his apparently bizarre behavior this evening. When they tried to approach him he fled up stairs. He exited through a window and jumped from a roof to the ground. He fled the facility. He was picked up by the same officers several hours later, he had walked over 1 mile from the home in the middle of the night. Upon arrival he is calm, but paranoid. He knows he is at the hospital. He is bothered by the presence of police officers. EKG uses marijuana. He denies alcohol or drug use. He is not aggressive to staff, he is obviously be a flight risk. He is unsure why their issues at home, why police were called, or why he is here. Reviewing the affidavit, apparently his adverse behavior was escalating to the grease his mother was concerned about violence. The police are persisting aware of this young man from prior interactions. They have no recall or record of violent behavior, however the witnessed very abnormal behavior such as riding a scooter down a local street naked. This is a prior event. Events tonight are primarily doing paranoid behavior and the flight into the night. Related Data Home Medications Medication Instructions Recorded Confirmed No Known Home Medications 08/12/18 08/12/18 Allergies Allergy/AdvReac Type Severity Reaction Status Date / Time No Known Drug Allergies Allergy Verified 08/12/18 10:57 Review of Systems <Deny Savage MD - Last Filed: 10/02/18 06:23> Review of Systems ROS Unobtainable: All systems reviewed & are unremarkable except as noted in HPI and below Constitutional Comments: He does not feel ill Eyes Comments: No eye complaints ENT Ears, Nose, Mouth, and Throat: Denies sore throat Cardiovascular Denies chest pain and Denies dyspnea Respiratory Denies chest congestion and Denies dyspnea Gastrointestinal Gastrointestinal: Denies abdominal pain Musculoskeletal Comments: No pain ROS is otherwise unobtainable due to the patient's medical condition. PFSH <Deny Savage MD - Last Filed: 10/02/18 06:23> Medical History Elective surgery (Acute) Schizophrenia (Acute) Sprain of right ankle (Acute) Syndesmotic disruption of right ankle (Acute) Family History (Updated 04/27/13 @ 00:00 by Louise Raman DO) Mother Alcohol abuse Social History household members: family Smoking Status: Never smoker alcohol intake: current Family History (Updated 04/27/13 @ 00:00 by Louise Raman DO) Mother Alcohol abuse Social History household members: family Smoking Status: Never smoker alcohol intake: current Exam <Deny Savage MD - Last Filed: 10/02/18 06:23> Initial Vital Signs Initial Vital Signs: Vital Signs Temperature 98.5 F 09/06/18 03:31 Pulse Rate 79 09/06/18 03:31 Respiratory Rate 16 09/06/18 03:31 Blood Pressure 148/99 H 09/06/18 03:31 Pulse Oximetry 99 09/06/18 03:31 Const General: cooperative, healthy appearing and No intoxicated appearing Nutritional Appearance: average body habitus [facility] Head: normocephalic and atraumatic Face and sinus: normal facial exam Mouth: oral mucosae normal Eyes Conjunctivae: conjunctivae normal Pupils: PERRL and pupil size bilaterally 5 Neck Thyroid: thyroid normal Resp Effort & Inspection: normal respiratory effort, able to speak in complete sentences, no respiratory distress and no use of accessory muscles Auscultation: clear to auscultation bilaterally, no rales, no rhonchi and no wheezes Cardio Rate: regular rate Rhythm: regular rhythm Heart Sounds: no click, no gallops, no murmurs and no rubs Pulses: normal peripheral pulses <Lety Dykes MD - Last Filed: 09/08/18 07:21> Initial Vital Signs Initial Vital Signs: Vital Signs Temperature 98.5 F 09/06/18 03:31 Pulse Rate 79 09/06/18 03:31 Respiratory Rate 16 09/06/18 03:31 Blood Pressure 148/99 H 09/06/18 03:31 Pulse Oximetry 99 09/06/18 03:31 Course <Deny Savage MD - Last Filed: 10/02/18 06:23> Course Narrative: The alcohol screen is negative. Regarding the toxicology screen, is positive only for marijuana. DC are has been contacted they will evaluate the patient. Orders Ordered: ED Orders 09/06/18 03:25 Urine Drug Screen, Rapid Stat 09/06/18 03:30 Urinalysis and Microscopic Stat 09/06/18 03:41 Acetaminophen Stat Complete Blood Count AUTO DIFF Stat Comprehensive Metabolic Panel Stat Ethanol (ETOH) Stat Salicylate Stat Thyroid Stimulating Hormone Stat Vital Signs - 8 hr 09/06/18 03:31 Temperature 98.5 F Pulse Rate 79 Respiratory Rate 16 Blood Pressure 148/99 H Pulse Oximetry 99 <Lety Dykes MD - Last Filed: 09/08/18 07:21> Orders Ordered: ED Orders 09/06/18 03:25 Urine Drug Screen, Rapid Stat 09/06/18 03:30 Urinalysis and Microscopic Stat 09/06/18 03:41 Acetaminophen Stat Complete Blood Count AUTO DIFF Stat Comprehensive Metabolic Panel Stat Ethanol (ETOH) Stat Salicylate Stat Thyroid Stimulating Hormone Stat Vital Signs - 8 hr 09/06/18 03:31 Temperature 98.5 F Pulse Rate 79 Respiratory Rate 16 Blood Pressure 148/99 H Pulse Oximetry 99 MDM - Psych <Deny Savage MD - Last Filed: 10/02/18 06:23> Lab Data Result diagrams: 09/06/18 03:41 09/06/18 03:41 Lab Results 09/06/18 09/06/18 09/06/18 Range/Units 03:25 03:41 03:41 WBC 7.8 (4.5-11.0) X10^3/uL RBC 4.73 (4.5-5.9) X10^6/uL Hgb 14.5 (13.5-17.5) g/dL Hct 42.7 (41-53) % MCV 90.4 (80-100) fL MCH 30.6 (26-34) PG MCHC 33.8 (30-36) % RDW 12.6 (11.6-14.8) % Plt Count 257 (150-400) X10^3/uL Neut % (Auto) 72.3 (50-75) % Lymph % (Auto) 19.2 L (25-40) % [place] % (Auto) 8.1 (3-14) % Eos % (Auto) 0.1 L (2-4) % Baso % (Auto) 0.3 (0-2) % Neut # (Auto) 5600 (1399-2704) /uL Lymph # (Auto) 1500 (8668-1952) /uL [place] # (Auto) 600 (0-900) /uL Eos # (Auto) 0 (0-450) /uL Baso # (Auto) 0 (0-100) /uL Sodium 142 (137-145) mmol/L Potassium 3.5 (3.4-5.1) mmol/L Chloride 104 (98-107) mmol/L Carbon Dioxide 28 (22-32) mmol/L BUN 22 H (9-20) mg/dL Creatinine 1.00 (0.66-1.25) mg/dL Estimated GFR > 60.0 (>60) mL/min BUN/Creatinine Ratio 22.0 (6-22) Glucose 106 H (70-100) mg/dL Calcium 9.5 (8.4-10.2) mg/dL Total Bilirubin 0.6 (0.2-1.3) mg/dL AST 48 (17-59) IU/L ALT 46 (21-72) IU/L Alkaline Phosphatase 91 (38-126) U/L Total Protein 8.2 (6.3-8.2) g/dL Albumin 4.8 (3.5-5.0) g/dL Globulin 3.4 (1.7-4.1) g/dL Albumin/Globulin Ratio 1.4 (1.0-2.8) TSH (0.47-4.68) uIU/mL Salicylates < 1.0 (<20) mg/dL Urine Opiates Screen Negative (Negative) Ur Oxycodone Screen Negative (Negative) Urine Methadone Screen Negative (Negative) Acetaminophen < 10 L (10-30) ug/mL Ur Barbiturates Screen Negative (Negative) U Tricyclic Antidepress Negative (Negative) Ur Phencyclidine Scrn Negative (Negative) Ur Amphetamines Screen Negative (Negative) U Methamphetamines Scrn Negative (Negative) Ur MDMA Scrn (Ecstasy) Negative (Negative) U Benzodiazepines Scrn Negative (Negative) Urine Cocaine Screen Negative (Negative) U Marijuana (THC) Screen Positive H (Negative) Ethyl Alcohol < 10 mg/dL 09/06/18 Range/Units 03:41 WBC (4.5-11.0) X10^3/uL RBC (4.5-5.9) X10^6/uL Hgb (13.5-17.5) g/dL Hct (41-53) % MCV (80-100) fL MCH (26-34) PG MCHC (30-36) % RDW (11.6-14.8) % Plt Count (150-400) X10^3/uL Neut % (Auto) (50-75) % Lymph % (Auto) (25-40) % [place] % (Auto) (3-14) % Eos % (Auto) (2-4) % Baso % (Auto) (0-2) % Neut # (Auto) (0124-3327) /uL Lymph # (Auto) (5681-8588) /uL [place] # (Auto) (0-900) /uL Eos # (Auto) (0-450) /uL Baso # (Auto) (0-100) /uL Sodium (137-145) mmol/L Potassium (3.4-5.1) mmol/L Chloride (98-107) mmol/L Carbon Dioxide (22-32) mmol/L BUN (9-20) mg/dL Creatinine (0.66-1.25) mg/dL Estimated GFR (>60) mL/min BUN/Creatinine Ratio (6-22) Glucose (70-100) mg/dL Calcium (8.4-10.2) mg/dL Total Bilirubin (0.2-1.3) mg/dL AST (17-59) IU/L ALT (21-72) IU/L Alkaline Phosphatase (38-126) U/L Total Protein (6.3-8.2) g/dL Albumin (3.5-5.0) g/dL Globulin (1.7-4.1) g/dL Albumin/Globulin Ratio (1.0-2.8) TSH 2.72 (0.47-4.68) uIU/mL Salicylates (<20) mg/dL Urine Opiates Screen (Negative) Ur Oxycodone Screen (Negative) Urine Methadone Screen (Negative) Acetaminophen (10-30) ug/mL Ur Barbiturates Screen (Negative) U Tricyclic Antidepress (Negative) Ur Phencyclidine Scrn (Negative) Ur Amphetamines Screen (Negative) U Methamphetamines Scrn (Negative) Ur MDMA Scrn (Ecstasy) (Negative) U Benzodiazepines Scrn (Negative) Urine Cocaine Screen (Negative) U Marijuana (THC) Screen (Negative) Ethyl Alcohol mg/dL <Lety Dykes MD - Last Filed: 09/08/18 07:21> Medical Records Attestation: I reviewed the patient's medical records. Lab Data Attestation: I reviewed the patient's lab results. Lab Results 09/06/18 09/06/18 09/06/18 Range/Units 03:25 03:41 03:41 WBC 7.8 (4.5-11.0) X10^3/uL RBC 4.73 (4.5-5.9) X10^6/uL Hgb 14.5 (13.5-17.5) g/dL Hct 42.7 (41-53) % MCV 90.4 (80-100) fL MCH 30.6 (26-34) PG MCHC 33.8 (30-36) % RDW 12.6 (11.6-14.8) % Plt Count 257 (150-400) X10^3/uL Neut % (Auto) 72.3 (50-75) % Lymph % (Auto) 19.2 L (25-40) % [place] % (Auto) 8.1 (3-14) % Eos % (Auto) 0.1 L (2-4) % Baso % (Auto) 0.3 (0-2) % Neut # (Auto) 5600 (2838-5728) /uL Lymph # (Auto) 1500 (3052-5870) /uL [place] # (Auto) 600 (0-900) /uL Eos # (Auto) 0 (0-450) /uL Baso # (Auto) 0 (0-100) /uL Sodium 142 (137-145) mmol/L Potassium 3.5 (3.4-5.1) mmol/L Chloride 104 (98-107) mmol/L Carbon Dioxide 28 (22-32) mmol/L BUN 22 H (9-20) mg/dL Creatinine 1.00 (0.66-1.25) mg/dL Estimated GFR > 60.0 (>60) mL/min BUN/Creatinine Ratio 22.0 (6-22) Glucose 106 H (70-100) mg/dL Calcium 9.5 (8.4-10.2) mg/dL Total Bilirubin 0.6 (0.2-1.3) mg/dL AST 48 (17-59) IU/L ALT 46 (21-72) IU/L Alkaline Phosphatase 91 (38-126) U/L Total Protein 8.2 (6.3-8.2) g/dL Albumin 4.8 (3.5-5.0) g/dL Globulin 3.4 (1.7-4.1) g/dL Albumin/Globulin Ratio 1.4 (1.0-2.8) TSH (0.47-4.68) uIU/mL Salicylates < 1.0 (<20) mg/dL Urine Opiates Screen Negative (Negative) Ur Oxycodone Screen Negative (Negative) Urine Methadone Screen Negative (Negative) Acetaminophen < 10 L (10-30) ug/mL Ur Barbiturates Screen Negative (Negative) U Tricyclic Antidepress Negative (Negative) Ur Phencyclidine Scrn Negative (Negative) Ur Amphetamines Screen Negative (Negative) U Methamphetamines Scrn Negative (Negative) Ur MDMA Scrn (Ecstasy) Negative (Negative) U Benzodiazepines Scrn Negative (Negative) Urine Cocaine Screen Negative (Negative) U Marijuana (THC) Screen Positive H (Negative) Ethyl Alcohol < 10 mg/dL 09/06/18 Range/Units 03:41 WBC (4.5-11.0) X10^3/uL RBC (4.5-5.9) X10^6/uL Hgb (13.5-17.5) g/dL Hct (41-53) % MCV (80-100) fL MCH (26-34) PG MCHC (30-36) % RDW (11.6-14.8) % Plt Count (150-400) X10^3/uL Neut % (Auto) (50-75) % Lymph % (Auto) (25-40) % [place] % (Auto) (3-14) % Eos % (Auto) (2-4) % Baso % (Auto) (0-2) % Neut # (Auto) (8363-0878) /uL Lymph # (Auto) (1882-5017) /uL [place] # (Auto) (0-900) /uL Eos # (Auto) (0-450) /uL Baso # (Auto) (0-100) /uL Sodium (137-145) mmol/L Potassium (3.4-5.1) mmol/L Chloride (98-107) mmol/L Carbon Dioxide (22-32) mmol/L BUN (9-20) mg/dL Creatinine (0.66-1.25) mg/dL Estimated GFR (>60) mL/min BUN/Creatinine Ratio (6-22) Glucose (70-100) mg/dL Calcium (8.4-10.2) mg/dL Total Bilirubin (0.2-1.3) mg/dL AST (17-59) IU/L ALT (21-72) IU/L Alkaline Phosphatase (38-126) U/L Total Protein (6.3-8.2) g/dL Albumin (3.5-5.0) g/dL Globulin (1.7-4.1) g/dL Albumin/Globulin Ratio (1.0-2.8) TSH 2.72 (0.47-4.68) uIU/mL Salicylates (<20) mg/dL Urine Opiates Screen (Negative) Ur Oxycodone Screen (Negative) Urine Methadone Screen (Negative) Acetaminophen (10-30) ug/mL Ur Barbiturates Screen (Negative) U Tricyclic Antidepress (Negative) Ur Phencyclidine Scrn (Negative) Ur Amphetamines Screen (Negative) U Methamphetamines Scrn (Negative) Ur MDMA Scrn (Ecstasy) (Negative) U Benzodiazepines Scrn (Negative) Urine Cocaine Screen (Negative) U Marijuana (THC) Screen (Negative) Ethyl Alcohol mg/dL MDM Narrative Medical decision making narrative: The patient was signed out to me at change of shift by Dr. Savage, pending DC our evaluation and disposition. Patient was evaluated by the DC are, who ultimately determined that this patient was not suicidal, homicidal, or otherwise a threat to himself or others, and did not feel that the patient could be involuntarily detained. The patient wished to go, and the mental health recommendation was that he be discharged. The patient has been given mental health follow-up, and is encouraged to avail himself of this. The patient was re-evaluated by myself prior to discharge and was found to be calm and cooperative. He expressed understanding of the plan, and also of the fact that he may return to the emergency department at any time, should he feel need of further help or intervention. Discharge Plan Departure Patient Disposition: Home Clinical Impression: Schizophrenia Discharge Date/Time: 09/06/18 09:26 Interventions: ED Discharge Assessment Last Done: 09/06/18 09:26 Instructions: DI for Schizophrenia Prescriptions: No Action No Known Home Medications RF: 0 Referrals: Louise Raman DO [Primary Care Provider] -
--- NOTE | 2018-09-06 03:58 | ED_ITS ---
HPI - Psych <Deny Savage MD - Last Filed: 10/02/18 06:23> General Chief Complaint: Psychiatric Symptoms Stated Complaint: Brought by [employer], patient off meds Time Seen by Provider: 09/06/18 03:25 Source: police Mode of arrival: other (Police) History of Present Illness HPI Narrative: The patient has schizophrenia. He has been off medications for 3 months, he apparently fired his doctor at [facility] 3 months ago. He is escorted here by police officers. One of the officers created an affidavit regarding the events of the night. He lives with his mother. His mother noted an ongoing escalation of adverse behavior. He is paranoid. He described making a mess at home. He was moving furniture and blocking door ways and windows. Police were called because of his apparently bizarre behavior this evening. When they tried to approach him he fled up stairs. He exited through a window and jumped from a roof to the ground. He fled the facility. He was picked up by the same officers several hours later, he had walked over 1 mile from the home in the middle of the night. Upon arrival he is calm, but paranoid. He knows he is at the hospital. He is bothered by the presence of police officers. EKG uses marijuana. He denies alcohol or drug use. He is not aggressive to staff, he is obviously be a flight risk. He is unsure why their issues at home, why police were called, or why he is here. Reviewing the affidavit, apparently his adverse behavior was escalating to the grease his mother was concerned about violence. The police are persisting aware of this young man from prior interac tions. They have no recall or record of violent behavior, however the witnessed very abnormal behavior such as riding a scooter down a local street naked. This is a prior event. Events tonight are primarily doing paranoid behavior and the flight into the night. Related Data Home Medications Medication Instructions Recorded Confirmed No Known Home Medications 08/12/18 08/12/18 Allergies Allergy/AdvReac Type Severity Reaction Status Date / Time No Known Drug Allergies Allergy Verified 08/12/18 10:57 Review of Systems <Deny Savage MD - Last Filed: 10/02/18 06:23> Review of Systems ROS Unobtainable: All systems reviewed & are unremarkable except as noted in HPI and below Constitutional Comments: He does not feel ill Eyes Comments: No eye complaints ENT Ears, Nose, Mouth, and Throat: Denies sore throat Cardiovascular Denies chest pain and Denies dyspnea Respiratory Denies chest congestion and Denies dyspnea Gastrointestinal Gastrointestinal: Denies abdominal pain Musculoskeletal Comments: No pain ROS is otherwise unobtainable due to the patient's medical condition. PFSH <Deny Savage MD - Last Filed: 10/02/18 06:23> Medical History Elective surgery (Acute) Schizophrenia (Acute) Sprain of right ankle (Acute) Syndesmotic disruption of right ankle (Acute) Family History (Updated 04/27/13 @ 00:00 by Louise Raman DO) Mother Alcohol abuse Social History household members: family Smoking Status: Never smoker alcohol intake: current Family History (Updated 04/27/13 @ 00:00 by Louise Raman DO) Mother Alcohol abuse Social History household members: family Smoking Status: Never smoker alcohol intake: current Exam <Deny Savage MD - Last Filed: 10/02/18 06:23> Initial Vital Signs Initial Vital Signs: Vital Signs Temperature 98.5 F 09/06/18 03:31 Pulse Rate 79 09/06/18 03:31 Respiratory Rate 16 09/06/18 03:31 Blood Pressure 148/99 H 09/06/18 03:31 Pulse Oximetry 99 09/06/18 03:31 Const General: cooperative, healthy appearing and No intoxicated appearing Nutritional Appearance: average body habitus [facility] Head: normocephalic and atraumatic Face and sinus: normal facial exam Mouth: oral mucosae normal Eyes Conjunctivae: conjunctivae normal Pupils: PERRL and pupil size bilaterally 5 Neck Thyroid: thyroid normal Resp Effort & Inspection: normal respiratory effort, able to speak in complete sentences, no respiratory distress and no use of accessory muscles Auscultation: clear to auscultation bilaterally, no rales, no rhonchi and no wheezes Cardio Rate: regular rate Rhythm: regular rhythm Heart Sounds: no click, no gallops, no murmurs and no rubs Pulses: normal peripheral pulses <Lety Dykes MD - Last Filed: 09/08/18 07:21> Initial Vital Signs Initial Vital Signs: Vital Signs Temperature 98.5 F 09/06/18 03:31 Pulse Rate 79 09/06/18 03:31 Respiratory Rate 16 09/06/18 03:31 Blood Pressure 148/99 H 09/06/18 03:31 Pulse Oximetry 99 09/06/18 03:31 Course <Deny Savage MD - Last Filed: 10/02/18 06:23> Course Narrative: The alcohol screen is negative. Regarding the toxicology screen, is positive only for marijuana. DC are has been contacted they will evaluate the patient. Orders Ordered: ED Orders 09/06/18 03:25 Urine Drug Screen, Rapid Stat 09/06/18 03:30 Urinalysis and Microscopic Stat 09/06/18 03:41 Acetaminophen Stat Complete Blood Count AUTO DIFF Stat Comprehensive Metabolic Panel Stat Ethanol (ETOH) Stat Salicylate Stat Thyroid Stimulating Hormone Stat Vital Signs - 8 hr 09/06/18 03:31 Temperature 98.5 F Pulse Rate 79 Respiratory Rate 16 Blood Pressure 148/99 H Pulse Oximetry 99 <Lety Dykes MD - Last Filed: 09/08/18 07:21> Orders Ordered: ED Orders 09/06/18 03:25 Urine Drug Screen, Rapid Stat 09/06/18 03:30 Urinalysis and Microscopic Stat 09/06/18 03:41 Acetaminophen Stat Complete Blood Count AUTO DIFF Stat Comprehensive Metabolic Panel Stat Ethanol (ETOH) Stat Salicylate Stat Thyroid Stimulating Hormone Stat Vital Signs - 8 hr 09/06/18 03:31 Temperature 98.5 F Pulse Rate 79 Respiratory Rate 16 Blood Pressure 148/99 H Pulse Oximetry 99 MDM - Psych <Deny Savage MD - Last Filed: 10/02/18 06:23> Lab Data Result diagrams: 09/06/18 03:41 09/06/18 03:41 Lab Results 09/06/18 09/06/18 09/06/18 Range/Units 03:25 03:41 03:41 WBC 7.8 (4.5-11.0) X10^3/uL RBC 4.73 (4.5-5.9) X10^6/uL Hgb 14.5 (13.5-17.5) g/dL Hct 42.7 (41-53) % MCV 90.4 (80-100) fL MCH 30.6 (26-34) PG MCHC 33.8 (30-36) % RDW 12.6 (11.6-14.8) % Plt Count 257 (150-400) X10^3/uL Neut % (Auto) 72.3 (50-75) % Lymph % (Auto) 19.2 L (25-40) % [place] % (Auto) 8.1 (3-14) % Eos % (Auto) 0.1 L (2-4) % Baso % (Auto) 0.3 (0-2) % Neut # (Auto) 5600 (3152-6019) /uL Lymph # (Auto) 1500 (9583-8391) /uL [place] # (Auto) 600 (0-900) /uL Eos # (Auto) 0 (0-450) /uL Baso # (Auto) 0 (0-100) /uL Sodium 142 (137-145) mmol/L Potassium 3.5 (3.4-5.1) mmol/L Chloride 104 (98-107) mmol/L Carbon Dioxide 28 (22-32) mmol/L BUN 22 H (9-20) mg/dL Creatinine 1.00 (0.66-1.25) mg/dL Estimated GFR > 60.0 (>60) mL/min BUN/Creatinine Ratio 22.0 (6-22) Glucose 106 H (70-100) mg/dL Calcium 9.5 (8.4-10.2) mg/dL Total Bilirubin 0.6 (0.2-1.3) mg/dL AST 48 (17-59) IU/L ALT 46 (21-72) IU/L Alkaline Phosphatase 91 (38-126) U/L Total Protein 8.2 (6.3-8.2) g/dL Albumin 4.8 (3.5-5.0) g/dL Globulin 3.4 (1.7-4.1) g/dL Albumin/Globulin Ratio 1.4 (1.0-2.8) TSH (0.47-4.68) uIU/mL Salicylates < 1.0 (<20) mg/dL Urine Opiates Screen Negative (Negative) Ur Oxycodone Screen Negative (Negative) Urine Methadone Screen Negative (Negative) Acetaminophen < 10 L (10-30) ug/mL Ur Barbiturates Screen Negative (Negative) U Tricyclic Antidepress Negative (Negative) Ur Phencyclidine Scrn Negative (Negative) Ur Amphetamines Screen Negative (Negative) U Methamphetamines Scrn Negative (Negative) Ur MDMA Scrn (Ecstasy) Negative (Negative) U Benzodiazepines Scrn Negative (Negative) Urine Cocaine Screen Negative (Negative) U Marijuana (THC) Screen Positive H (Negative) Ethyl Alcohol < 10 mg/dL 09/06/18 Range/Units 03:41 WBC (4.5-11.0) X10^3/uL RBC (4.5-5.9) X10^6/uL Hgb (13.5-17.5) g/dL Hct (41-53) % MCV (80-100) fL MCH (26-34) PG MCHC (30-36) % RDW (11.6-14.8) % Plt Count (150-400) X10^3/uL Neut % (Auto) (50-75) % Lymph % (Auto) (25-40) % [place] % (Auto) (3-14) % Eos % (Auto) (2-4) % Baso % (Auto) (0-2) % Neut # (Auto) (0610-6786) /uL Lymph # (Auto) (2231-4088) /uL [place] # (Auto) (0-900) /uL Eos # (Auto) (0-450) /uL Baso # (Auto) (0-100) /uL Sodium (137-145) mmol/L Potassium (3.4-5.1) mmol/L Chloride (98-107) mmol/L Carbon Dioxide (22-32) mmol/L BUN (9-20) mg/dL Creatinine (0.66-1.25) mg/dL Estimated GFR (>60) mL/min BUN/Creatinine Ratio (6-22) Glucose (70-100) mg/dL Calcium (8.4-10.2) mg/dL Total Bilirubin (0.2-1.3) mg/dL AST (17-59) IU/L ALT (21-72) IU/L Alkaline Phosphatase (38-126) U/L Total Protein (6.3-8.2) g/dL Albumin (3.5-5.0) g/dL Globulin (1.7-4.1) g/dL Albumin/Globulin Ratio (1.0-2.8) TSH 2.72 (0.47-4.68) uIU/mL Salicylates (<20) mg/dL Urine Opiates Screen (Negative) Ur Oxycodone Screen (Negative) Urine Methadone Screen (Negative) Acetaminophen (10-30) ug/mL Ur Barbiturates Screen (Negative) U Tricyclic Antidepress (Negative) Ur Phencyclidine Scrn (Negative) Ur Amphetamines Screen (Negative) U Methamphetamines Scrn (Negative) Ur MDMA Scrn (Ecstasy) (Negative) U Benzodiazepines Scrn (Negative) Urine Cocaine Screen (Negative) U Marijuana (THC) Screen (Negative) Ethyl Alcohol mg/dL <Lety Dykes MD - Last Filed: 09/08/18 07:21> Medical Records Attestation: I reviewed the patient's medical records. Lab Data Attestation: I reviewed the patient's lab results. Lab Results 09/06/18 09/06/18 09/06/18 Range/Units 03:25 03:41 03:41 WBC 7.8 (4.5-11.0) X10^3/uL RBC 4.73 (4.5-5.9) X10^6/uL Hgb 14.5 (13.5-17.5) g/dL Hct 42.7 (41-53) % MCV 90.4 (80-100) fL MCH 30.6 (26-34) PG MCHC 33.8 (30-36) % RDW 12.6 (11.6-14.8) % Plt Count 257 (150-400) X10^3/uL Neut % (Auto) 72.3 (50-75) % Lymph % (Auto) 19.2 L (25-40) % [place] % (Auto) 8.1 (3-14) % Eos % (Auto) 0.1 L (2-4) % Baso % (Auto) 0.3 (0-2) % Neut # (Auto) 5600 (5087-5444) /uL Lymph # (Auto) 1500 (3212-4209) /uL [place] # (Auto) 600 (0-900) /uL Eos # (Auto) 0 (0-450) /uL Baso # (Auto) 0 (0-100) /uL Sodium 142 (137-145) mmol/L Potassium 3.5 (3.4-5.1) mmol/L Chloride 104 (98-107) mmol/L Carbon Dioxide 28 (22-32) mmol/L BUN 22 H (9-20) mg/dL Creatinine 1.00 (0.66-1.25) mg/dL Estimated GFR > 60.0 (>60) mL/min BUN/Creatinine Ratio 22.0 (6-22) Glucose 106 H (70-100) mg/dL Calcium 9.5 (8.4-10.2) mg/dL Total Bilirubin 0.6 (0.2-1.3) mg/dL AST 48 (17-59) IU/L ALT 46 (21-72) IU/L Alkaline Phosphatase 91 (38-126) U/L Total Protein 8.2 (6.3-8.2) g/dL Albumin 4.8 (3.5-5.0) g/dL Globulin 3.4 (1.7-4.1) g/dL Albumin/Globulin Ratio 1.4 (1.0-2.8) TSH (0.47-4.68) uIU/mL Salicylates < 1.0 (<20) mg/dL Urine Opiates Screen Negative (Negative) Ur Oxycodone Screen Negative (Negative) Urine Methadone Screen Negative (Negative) Acetaminophen < 10 L (10-30) ug/mL Ur Barbiturates Screen Negative (Negative) U Tricyclic Antidepress Negative (Negative) Ur Phencyclidine Scrn Negative (Negative) Ur Amphetamines Screen Negative (Negative) U Methamphetamines Scrn Negative (Negative) Ur MDMA Scrn (Ecstasy) Negative (Negative) U Benzodiazepines Scrn Negative (Negative) Urine Cocaine Screen Negative (Negative) U Marijuana (THC) Screen Positive H (Negative) Ethyl Alcohol < 10 mg/dL 09/06/18 Range/Units 03:41 WBC (4.5-11.0) X10^3/uL RBC (4.5-5.9) X10^6/uL Hgb (13.5-17.5) g/dL Hct (41-53) % MCV (80-100) fL MCH (26-34) PG MCHC (30-36) % RDW (11.6-14.8) % Plt Count (150-400) X10^3/uL Neut % (Auto) (50-75) % Lymph % (Auto) (25-40) % [place] % (Auto) (3-14) % Eos % (Auto) (2-4) % Baso % (Auto) (0-2) % Neut # (Auto) (1800-5165) /uL Lymph # (Auto) (1119-7387) /uL [place] # (Auto) (0-900) /uL Eos # (Auto) (0-450) /uL Baso # (Auto) (0-100) /uL Sodium (137-145) mmol/L Potassium (3.4-5.1) mmol/L Chloride (98-107) mmol/L Carbon Dioxide (22-32) mmol/L BUN (9-20) mg/dL Creatinine (0.66-1.25) mg/dL Estimated GFR (>60) mL/min BUN/Creatinine Ratio (6-22) Glucose (70-100) mg/dL Calcium (8.4-10.2) mg/dL Total Bilirubin (0.2-1.3) mg/dL AST (17-59) IU/L ALT (21-72) IU/L Alkaline Phosphatase (38-126) U/L Total Protein (6.3-8.2) g/dL Albumin (3.5-5.0) g/dL Globulin (1.7-4.1) g/dL Albumin/Globulin Ratio (1.0-2.8) TSH 2.72 (0.47-4.68) uIU/mL Salicylates (<20) mg/dL Urine Opiates Screen (Negative) Ur Oxycodone Screen (Negative) Urine Methadone Screen (Negative) Acetaminophen (10-30) ug/mL Ur Barbiturates Screen (Negative) U Tricyclic Antidepress (Negative) Ur Phencyclidine Scrn (Negative) Ur Amphetamines Screen (Negative) U Methamphetamines Scrn (Negative) Ur MDMA Scrn (Ecstasy) (Negative) U Benzodiazepines Scrn (Negative) Urine Cocaine Screen (Negative) U Marijuana (THC) Screen (Negative) Ethyl Alcohol mg/dL MDM Narrative Medical decision making narrative: The patient was signed out to me at change of shift by Dr. Savage, pending DC our evaluation and disposition. Patient was evaluated by the DC are, who ultimately determined that this patient was not suicidal, homicidal, or otherwise a threat to himself or others, and did not feel that the patient could be involuntarily detained. The patient wished to go, and the mental health recommendation was that he be discharged. The patient has been given mental health follow-up, and is encouraged to avail himself of this. The patient was re-evaluated by myself prior to discharge and was found to be calm and cooperative. He expressed understanding of the plan, and also of the fact that he may return to the emergency department at any time, should he feel need of further help or intervention. Discharge Plan Departure Patient Disposition: Home Clinical Impression: Schizophrenia Discharge Date/Time: 09/06/18 09:26 Interventions: ED Discharge Assessment Last Done: 09/06/18 09:26 Instructions: DI for Schizophrenia Prescriptions: No Action No Known Home Medications RF: 0 Referrals: Louise Raman DO [Primary Care Provider] -
[2018-09-06 04:01] LABS: Acetaminophen < 10 ug/mL (10-30); Ethanol (ETOH) < 10 mg/dL; Salicylate < 1.0 mg/dL (<20)
--- NOTE | 2018-09-06 04:20 | PC.NURSE ---
Late Entry-upon receiving pt from [employer] officer, noticed affect guarding and worries about germs. 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 Also, refuses to be touched by DR. Savage during examination and requesting to wear gloves during Thyroid assessment
[2018-09-06 04:41] LABS: Thyroid Stimulating Hormone 2.72 uIU/mL (0.47-4.68)
[2018-09-06 06:13] VITALS: BP 112/65; PULSE 85; RESP 16; O2SAT 99
--- NOTE | 2018-09-06 07:37 | PC.NURSE ---
Chioma BAXTER at bedside. Door is open per his request while interviewing patient
--- NOTE | 2018-09-06 07:45 | PC.NURSE ---
DVR Rep is currently with patient processing assessment
--- NOTE | 2018-09-06 08:03 | PC.NURSE ---
DVR Rep still meeting with patient
--- NOTE | 2018-09-06 08:36 | PC.NURSE ---
Patient has removed his scrubs and wrapped himself up in a bath blanket and sitting on chair. Patient did not eat his breakfast he only drank his milk
--- NOTE | 2018-09-06 08:58 | PC.NURSE ---
Patient given orange juice and new yellow socks
[2018-09-06 09:23] VITALS: BP 139/68; PULSE 64; RESP 16; O2SAT 100
== END 2018-09-06 09:26 | disposition home or self-care (01) ==
PROVIDERS: Emergency Medicine; Emergency Provider Emergency Medicine; PCP Family Medicine
DX: F20.0 Paranoid schizophrenia (principal)
CPT/HCPCS: 36415; 80053; 80305; 80320; 80329; 84443; 85025; 99285; G0480

== ENCOUNTER 2019-01-01 15:02 | Emergency (ER) | payer OTHER, MEDICAID, SELFPAY ==
[2017-10-04 20:07] VITALS: BMI 28.5
[2019-01-01 15:17] VITALS: BP 132/75; PULSE 83; RESP 14; TEMP 37.4; O2SAT 98; BMI 25.5
--- NOTE | 2019-01-01 15:31 | DI.RAD.S_ITS ---
PROCEDURE: XR HAND RT MIN 3V INDICATIONS: R lateral mid hand pain and swelling TECHNIQUE: 3 views of the hand(s) acquired. COMPARISON: None. FINDINGS: Bones: There is a comminuted and mildly angulated distal fifth metacarpal fracture. Soft tissues: No suspicious soft tissue calcifications. IMPRESSION: Distal fifth metacarpal angulated fracture. Dictated by: Sandra Bullard M.D. on 01/01/2019 at 16:49 Approved by: Sandra Bullard M.D. on 01/01/2019 at 16:49
[2019-01-01] MEDS: IBUPROFEN 400 MG TABLET 800 MG PO (15:40)
[2019-01-01] MEDS: ACETAMINOPHEN 325 MG TABLET 975 MG PO (15:44)
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
[2019-01-01 17:58] VITALS: BP 100/79; PULSE 64; RESP 16; O2SAT 99
== END 2019-01-01 18:15 | disposition home or self-care (01) ==
PROVIDERS: Emergency Provider Nurse Practitioner Family; PCP Family Medicine
DX: S62.306A Unspecified fracture of fifth metacarpal bone, right hand, initial encounter for closed fracture (principal); K08.89 Other specified disorders of teeth and supporting structures; Y04.0XXA Assault by unarmed brawl or fight, initial encounter
CPT/HCPCS: 73130; 99282; 99283

== ENCOUNTER 2019-01-08 04:53 | Emergency (ER) | payer OTHER, MEDICAID, SELFPAY ==
[2017-10-04 20:07] VITALS: BMI 28.5
--- NOTE | 2019-01-08 05:02 | DI.RAD.S_ITS ---
PROCEDURE: XR HAND RT MIN 3V INDICATIONS: pain in hand by fifth knuckle after hitting something. TECHNIQUE: 3 views of the hand(s) acquired. COMPARISON: [facility], CR, XR HAND RT MIN 3V, 01/01/2019, 15:43. FINDINGS: Bones: There is a comminuted fracture of the fifth metacarpal neck with displacement and angulation. There is callus formation consistent with healing. Carpal bones are normally aligned. No suspicious bony lesions. Soft tissues: No suspicious soft tissue calcifications. IMPRESSION: Healing fifth metacarpal neck fracture. Dictated by: Deneen Raman M.D. on 01/08/2019 at 9:22 Approved by: Deneen Raman M.D. on 01/08/2019 at 9:23
[2019-01-08 05:03] VITALS: BP 124/81; PULSE 80; RESP 16; TEMP 36.9; O2SAT 98; BMI 23.4
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
== END 2019-01-08 05:59 | disposition home or self-care (01) ==
PROVIDERS: Emergency Provider Emergency Medicine; PCP Family Medicine
DX: K08.89 Other specified disorders of teeth and supporting structures (principal); S62.339 Displaced fracture of neck of unspecified metacarpal bone; Y04.0XXA Assault by unarmed brawl or fight, initial encounter
CPT/HCPCS: 29125; 73130; 99282; 99283

== ENCOUNTER 2019-01-26 02:49 | Emergency (ER) | payer OTHER, MEDICAID, SELFPAY ==
[2017-10-04 20:07] VITALS: BMI 28.5
[2019-01-26 02:49] VITALS: BP 155/86; PULSE 69; RESP 18; TEMP 36.7; O2SAT 97; BMI 24.3
--- NOTE | 2019-01-26 02:56 | ED.HA ---
HPI - Headache General Chief Complaint: Dental/Oral Stated Complaint: Mental health crisis Time Seen by Provider: 01/26/19 02:56 Source: patient Mode of arrival: other (Police) Limitations: no limitations History of Present Illness HPI Narrative: The patient arrives with least complaining of a headache for 1 week. Specifically indicates right jaw pain. The pain has increased. He has a history of schizophrenia, his mother informed police that he has been off medications for several months. Please note recent interactions with him regarding Mr. caren dubon activity. The patient is oriented upon arrival, complaining of jaw pain. He denies any recent use of drugs or alcohol. He denies hallucinations, suicidal or homicidal ideation. He is up and about at night, due to pain. He has done nothing for pain. He has not seen a dentist. He has no fever, chills or facial swelling. He has had no trauma. He has no visual changes or other ENT complaints. Related Data Previous Rx's Medication Instructions Recorded amoxicillin 500 mg PO BID #14 cap 01/08/19 amoxicillin 500 mg PO TID 10 Days #30 cap 01/26/19 aripiprazole [Abilify] 30 mg PO BEDTIME #30 tab 01/26/19 benztropine 1 mg PO DAILY #30 tab 01/26/19 ibuprofen 600 mg PO Q6-8H PRN #20 tab 01/26/19 sertraline 100 mg PO DAILY #30 tab 01/26/19 Allergies Allergy/AdvReac Type Severity Reaction Status Date / Time No Known Drug Allergies Allergy Verified 01/01/19 15:17 Review of Systems Review of Systems ROS Unobtainable: All systems reviewed & are unremarkable except as noted in HPI and below Constitutional Constitutional: Denies chills, Denies fever(s), Reports headache(s) and Denies lethargy Comments: Obviously in pain Eyes Eyes: Denies change in vision, Denies irritation and Denies loss of vision ENT Ears, Nose, Mouth, and Throat: Denies change in voice, Reports dental pain, Denies vertigo, Denies dizziness, Reports headache(s), Denies neck pain and Denies sore throat Cardiovascular Cardiovascular: Denies chest pain, Denies irregular heart rhythm, Denies lightheadedness, Denies palpitations, Denies dyspnea and Denies orthopnea Respiratory Respiratory: Denies cough and Denies dyspnea Gastrointestinal Gastrointestinal: Denies abdominal pain, Denies diarrhea, Denies nausea and Denies vomiting Musculoskeletal Musculoskeletal: Denies back pain and Denies neck pain Integumentary/Breasts Skin/Breast: Denies pruritus and Denies rash Neurologic Neurologic: Reports as per HPI, Denies confusion, Denies vertigo, Denies dizziness, Reports headache(s) and Denies loss of vision Psychiatric Psychiatric: Reports abnormal sleep pattern, Denies confusion, Denies paranoia, Denies hallucinations, Denies homicidal ideation and Denies suicidal ideation Endocrine Endocrine: Denies palpitations Patient History Medical History Elective surgery (Acute) Schizophrenia (Acute) Sprain of right ankle (Acute) Syndesmotic disruption of right ankle (Acute) Family History Mother Alcohol abuse Social History household members: family Smoking Status: Current every day smoker alcohol intake: current alcohol intake frequency: holidays/special occasions only Substance Use Type: marijuana Exam Initial Vital Signs Initial Vital Signs: Vital Signs Temperature 98.1 F 01/26/19 02:49 Pulse Rate 69 01/26/19 02:49 Respiratory Rate 18 01/26/19 02:49 Blood Pressure 155/86 H 01/26/19 02:49 Pulse Oximetry 97 01/26/19 02:49 Const General: cooperative, well developed and ill appearing Nutritional Appearance: well nourished Orientation: alert, awake, oriented x3 and not confused [facility] Head: normocephalic and atraumatic Ears: external ears normal and TM's normal bilaterally Nose: external nose normal and No nasal discharge Face and sinus: sinuses nontender and face symmetric Mouth: oral mucosae normal, lip normal and moist mucous membranes Teeth and gingiva: abnormal tooth or associated gingiva lower right third molar tender and with associated gingival fluctuance Throat: tonsils normal and uvula midline Eyes General: appearance normal, both eyes and all related structures Eyelids: eyelids normal Conjunctivae: conjunctivae normal Sclera: sclerae normal Pupils: PERRL EOM: EOM intact bilaterally Neck Neck: no meningeal signs and No lymphadenopathy Resp Effort & Inspection: normal respiratory effort and able to speak in complete sentences Auscultation: clear to auscultation bilaterally, no rales, no rhonchi and no wheezes Cardio Rate: regular rate Rhythm: regular rhythm Heart Sounds: S1 normal, S2 normal, no click, no gallops, no murmurs and no rubs Pulses: normal peripheral pulses GI Palpation: soft and No tender Skin General: no rashes or lesions noted Neuro General: alert, oriented x3, gait normal and no focal motor deficits Speech: speech normal Psych Appearance: disheveled Mental Status: mental status grossly normal Speech and Movement: speech and movement normal Attitude: cooperative Thought Content: normal, no homicidality and suicidality Judgment: judgment good Course Course Course Narrative: In my initial interview the patient complains of headache, and dental pain. Discussing schizophrenia, he tells me he does not think he has schizophrenia. He has been noncompliant with medications for months. He is oriented without threatening complaints. The patient received Toradol, prednisone and amoxicillin. He is not detainable. He was initially wondered about the ER with complaints of headache and pain. He agreed to take his medications. He has received initial dosing of sertraline and Abilify. He has been homeless, but is currently having some assistance from his mother. He will be discharged on amoxicillin and Motrin for the dental pain. I will prescribe the Abilify, sertraline, and Cogentin as written. He is to follow up with a dentist, and mental health. Orders Ordered: Discontinued Medications Amoxicillin (Trimox) 500 mg PO NOW ONE Stop: 01/26/19 02:57 Last Admin: 01/26/19 03:05 Dose: 500 mg Documented by: SUZY Aripiprazole (Abilify) 10 mg PO NOW ONE Stop: 01/26/19 03:57 Last Admin: 01/26/19 04:49 Dose: 10 mg Documented by: SUZY Benztropine Mesylate (Cogentin) 1 mg PO NOW ONE Stop: 01/26/19 03:58 Last Admin: 01/26/19 05:52 Dose: Not Given Documented by: SUZY Ketorolac Tromethamine (Toradol) 60 mg IM NOW ONE Stop: 01/26/19 02:57 Last Admin: 01/26/19 03:05 Dose: 60 mg Documented by: SUZY Prednisone (Deltasone) 60 mg PO NOW ONE Stop: 01/26/19 02:57 Last Admin: 01/26/19 03:05 Dose: 60 mg Documented by: SUZY Sertraline HCl (Zoloft) 100 mg PO BEDTIME BEN Sertraline HCl (Zoloft) 100 mg PO NOW ONE Stop: 01/26/19 04:49 Last Admin: 01/26/19 04:50 Dose: 100 mg Documented by: SUZY Vital Signs Vital signs: Vital Signs - 8 hr 01/26/19 02:49 01/26/19 05:45 Temperature 98.1 F Pulse Rate 69 84 Respiratory Rate 18 18 Blood Pressure 155/86 H 153/95 H Pulse Oximetry 97 99 Discharge Plan Departure Patient Disposition: Home Clinical Impression: Abscess, dental Schizophrenia Qualifiers: Schizophrenia type: undifferentiated schizophrenia 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 Motrin every 6 hours for dental pain. Restart your schizophrenia medications. I have given prescriptions for sertraline, Abilify and Cogentin. You should follow-up with a local tenderness, you should seek follow-up with mental health. Return to the ER as needed. Prescriptions: New amoxicillin 500 mg capsule 500 mg PO TID 10 Days Qty: 30 RF: 0 ibuprofen 600 mg tablet 600 mg PO Q6-8H PRN (Reason: pain) Qty: 20 RF: 0 aripiprazole [Abilify] 30 mg tablet 30 mg PO BEDTIME Qty: 30 RF: 0 sertraline 100 mg tablet 100 mg PO DAILY Qty: 30 RF: 0 benztropine 1 mg tablet 1 mg PO DAILY Qty: 30 RF: 0 No Action amoxicillin 500 mg capsule 500 mg PO BID Qty: 14 RF: 0 Referrals: Louise Raman DO [Primary Care Provider] -
[2019-01-26] MEDS: KETOROLAC 60 MG/2 ML VIAL IM (03:05)
[2019-01-26] MEDS: AMOXICILLIN 250 MG CAPSULE 500 MG PO (03:05)
[2019-01-26] MEDS: predniSONE 20 MG TABLET 60 MG PO (03:05)
[2019-01-26] MEDS: ARIPiprazole 10 MG TABLET PO (04:49)
[2019-01-26] MEDS: SERTRALINE 50 MG TABLET 100 MG PO (04:50)
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
[2019-01-26 05:45] VITALS: BP 153/95; PULSE 84; RESP 18; O2SAT 99
== END 2019-01-26 05:45 | disposition home or self-care (01) ==
PROVIDERS: Emergency Provider Emergency Medicine; PCP Family Medicine
DX: K04.7 Periapical abscess without sinus (principal); F20.3 Undifferentiated schizophrenia
CPT/HCPCS: 96372; 99282; 99283; J1885

== ENCOUNTER → 2019-02-12 14:58 | Outpatient (CLI) | payer OTHER, MEDICAID, SELFPAY ==
[2017-10-04 20:07] VITALS: BMI 28.5
[2019-02-12 16:55] LABS: Urine N gonorrhoeae NOT DETECTED
[2019-02-12 17:01] LABS: Urine Chlamydia NOT DETECTED
[2019-02-12 17:02] LABS: HIV 1 & 2 Ab/Ag 4th Gen Combo NEGATIVE (NEGATIVE)
[2019-02-14 14:35] LABS: Hepatitis A Antibody IgM NONREACTIVE; Hepatitis Acute Panel Interp 0.02; Hepatitis B Core Antibody IgM NONREACTIVE; Hepatitis B Surface Antigen NONREACTIVE; Hepatitis C Antibody NONREACTIVE
[2019-02-14 19:51] LABS: RPR Screen Nonreactive (Nonreactive)
[2019-02-17 13:17] LABS: HSV 1 IgM Screen Positive (Negative); HSV 2 IgM Screen Positive (Negative)
== END ==
PROVIDERS: PCP Family Medicine; Visit Provider Family Medicine
DX: Z20.2 Contact with and (suspected) exposure to infections with a predominantly sexual mode of transmission (principal)
CPT/HCPCS: 36415; 80074; 86592; 86695; 86696; 87389; 87491; 87591

== ENCOUNTER 2019-06-07 21:03 | Emergency (ER) | payer OTHER, MEDICAID, SELFPAY ==
[2017-10-04 20:07] VITALS: BMI 28.5
[2019-06-07 20:59] VITALS: BP 125/65; PULSE 88; RESP 16; TEMP 36.2; O2SAT 100
--- NOTE | 2019-06-07 21:03 | PC.NURSE ---
patient intoxicated, cannot answer all triage questions.
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
[2019-06-07 21:16] LABS: UR Morphine/Opiate cutoff 300 Negative (Negative); Ur Creatinine Normal (Normal); Ur Specific Gravity Normal (Normal); Urine Amphetamines Negative (Negative); Urine Barbiturates Negative (Negative); Urine Benzodiazepines Negative (Negative); Urine Cocaine Negative (Negative); Urine MDMA Negative (Negative); Urine Methadone Negative (Negative); Urine Methamphetamines Negative (Negative); Urine Oxycodone Negative (Negative); Urine Phencyclidine Negative (Negative); Urine Tetrahydrocannabinol Negative (Negative); Urine Tricyclic Antidepressant Negative (Negative); Urine pH Normal (Normal)
[2019-06-07 22:00] VITALS: PULSE 57; RESP 18; O2SAT 97
--- NOTE | 2019-06-07 22:40 | PC.NURSE ---
patient vomitid all over self, bed, floor, conn. Bed changed. Patient wiped down. refuses clothing change.
[2019-06-08 02:50] VITALS: PULSE 78; RESP 16; O2SAT 95
--- NOTE | 2019-06-08 03:22 | PC.NURSE ---
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 Patient given new clean clothing and warm blankets.
--- NOTE | 2019-06-08 04:45 | PC.NURSE ---
patient up ambulating around unit. Given food and fluids. Speaking in clear sentences. Walking with steady gate. Provider notified and approved discharge.
[2019-06-08 04:46] VITALS: BP 120/76; PULSE 65; RESP 14; TEMP 36.3; O2SAT 98
== END 2019-06-08 04:48 | disposition home or self-care (01) ==
PROVIDERS: Emergency Provider Emergency Medicine; PCP Family Medicine
DX: F10.129 Alcohol abuse with intoxication, unspecified (principal)
CPT/HCPCS: 80305; 99284

== ENCOUNTER 2019-07-28 17:09 | Emergency (ER) | payer OTHER, MEDICAID, SELFPAY ==
[2017-10-04 20:07] VITALS: BMI 28.5
[2019-07-28 17:25] VITALS: BP 134/77; PULSE 65; RESP 12; TEMP 36.2; O2SAT 100
[2019-07-28 17:45] LABS: UR Morphine/Opiate cutoff 300 Negative (Negative); Ur Creatinine Normal (Normal); Ur Specific Gravity Normal (Normal); Urine Amphetamines Negative (Negative); Urine Barbiturates Negative (Negative); Urine Benzodiazepines Negative (Negative); Urine Cocaine Negative (Negative); Urine MDMA Negative (Negative); Urine Methadone Negative (Negative); Urine Methamphetamines Negative (Negative); Urine Oxycodone Negative (Negative); Urine Phencyclidine Negative (Negative); Urine Tetrahydrocannabinol Negative (Negative); Urine Tricyclic Antidepressant Negative (Negative); Urine pH Normal (Normal)
[2019-07-28 18:04] LABS: Bacteria Urine None Seen; RBC Urine None Seen (0-5/HPF); WBC Urine None Seen (0-5/HPF)
[2019-07-28 18:06] LABS: Appearance Urine UA CLEAR; Bilirubin Urine UA NEGATIVE (NEGATIVE); Color Urine UA YELLOW; Glucose Urine UA NEGATIVE (Negative); Ketones Urine UA NEGATIVE (NEGATIVE); Leukocyte Esterase Urine UA NEGATIVE (NEGATIVE); Nitrite Urine UA NEGATIVE (Negative); Occult Blood Urine UA NEGATIVE (Negative); Protein Urine UA NEGATIVE (Negative); Specific Gravity Urine UA >=1.030 (1.000-1.035); Urobilinogen Urine UA 0.2 E.U./dL (0.2)
[2019-07-28 18:08] LABS: Add Manual Diff / Slide Review NO; Basophils Absolute Auto 0 /uL (0-100); Basophils Percent Auto 0.5 % (0-2); Eosinophils Absolute Auto 0 /uL (0-450); Eosinophils Percent Auto 0.2 % (2-4); Hematocrit 45.4 % (41-53); Hemoglobin 15.7 g/dL (13.5-17.5); Lymphocytes Absolute Auto 1500 /uL (1100-4500); Lymphocytes Percent Auto 32.4 % (25-40); Mean Corpuscular HGB Conc 34.6 % (30-36); Mean Corpuscular Hemoglobin 31.2 PG (26-34); Mean Corpuscular Volume 90.1 fL (80-100); Monocytes Absolute Auto 300 /uL (0-900); Monocytes Percent Auto 7.2 % (3-14); Neutrophils Absolute Auto 2800 /uL (1500-7000); Neutrophils Percent Auto 59.7 % (50-75); Platelet Count 172 X10^3/uL (150-400); Red Blood Cell Count 5.04 X10^6/uL (4.5-5.9); Red Cell Distribution Width 12.6 % (11.6-14.8); White Blood Cell Count 4.8 X10^3/uL (4.5-11.0)
--- NOTE | 2019-07-28 18:12 | PC.NURSE ---
Patient got dressed and walked out of department through ambulance bay door.
[2019-07-28 18:24] LABS: Calcium Oxalate Crystals Urine Moderate; Culture Indicated Urine Cult Not Indicated; Mucus Urine 1+ (Negative)
[2019-07-28 18:29] LABS: Acetaminophen < 10 ug/mL (10-30); Alanine Aminotransferase 22 IU/L (<50); Albumin 4.8 g/dL (3.5-5.0); Albumin Globulin Ratio 1.4 (1.0-2.8); Alkaline Phosphatase 52 U/L (38-126); Aspartate Aminotransferase 33 IU/L (17-59); BUN Creatinine Ratio 16.5 (6-22); Bilirubin Total 0.5 mg/dL (0.2-1.3); Blood Urea Nitrogen 14 mg/dL (9-20); Calcium 9.7 mg/dL (8.4-10.2); Carbon Dioxide 26 mmol/L (22-32); Chloride 105 mmol/L (98-107); Estimated Glomerular Filt Rate > 60.0 mL/min (>60); Ethanol (ETOH) < 10 mg/dL; Globulin 3.4 g/dL (1.7-4.1); Glucose 94 mg/dL (70-100); HEMOLYSIS < 15 (0-50); Potassium 3.8 mmol/L (3.4-5.1); Salicylate < 1.0 mg/dL (<20); Sodium 140 mmol/L (137-145); Total Protein 8.2 g/dL (6.3-8.2)
[2019-07-28 18:52] LABS: Free T4, Direct Thyroxine 0.95 ng/dL (0.78-2.19)
[2019-07-28 19:06] LABS: Thyroid Stimulating Hormone 1.38 uIU/mL (0.47-4.68)
== END 2019-07-28 18:12 | disposition left against medical advice (07) ==
PROVIDERS: Emergency Medicine; Emergency Provider Emergency Medicine; PCP Family Medicine
DX: R41.82 Altered mental status, unspecified (principal)
CPT/HCPCS: 36415; 80053; 80305; 80320; 80329; 81001; 84439; 84443; 85025; 99283; G0480